=== PATIENT | female | born 1985 | race Hispanic/Latino ===

== ENCOUNTER 2017-05-27 12:31 | Inpatient (IN) | payer OTHER ==
[2017-05-27 13:34] LABS: Bilirubin Negative (Negative); Blood, Urine Negative (Negative); Glucose, Urine (Dipstick) >=1000 mg/dL (Negative); Ketone, Urine 15 mg/dL (Negative); Nitrite Negative (Negative); Protein, Urine (Dipstick) Negative (Neg-Trace); Urobilinogen 0.2 mg/dL (0.2-1.0)
[2017-05-27 13:46] LABS: #Lymphocytes 1.6 thou/uL (1.20-3.40); #Monocytes 0.4 thou/uL (0.11-0.59); #Neutrophils 7.9 thou/uL (1.40-6.50); %Basophils 0.4 % (0.0-1.0); %Eosinophils 0.5 % (0.0-10.0); %Lymphocytes 16.1 % (21.0-51.0); %Monocytes 3.6 % (0.0-10.0); Hematocrit 39.3 % (36.0-47.0); Mean Platelet Volume 10.4 fL (7.4-10.4); Red Blood Cell (RBC) Count 5.54 mill/uL (4.20-5.40)
[2017-05-27 14:00] LABS: Anisocytosis SLIGHT = 6-15 cells (100X) (0-5/hpf); Hypochromia SLIGHT = 6-15 cells (100X) (0-5/hpf); Microcytosis SLIGHT = 6-15 cells (100X) (0-5/hpf); Polychromasia SLIGHT = 2-3 cells (100X) (0-2/hpf)
[2017-05-27 14:09] LABS: ALT (SGPT) 13 U/L (8-55); AST (SGOT) 12 U/L (5-34); Alkaline Phosphatase 121 U/L (40-150); Anion Gap 18 mmol/L (10-20); BUN (Urea Nitrogen) 9 mg/dL (7.0-18.7); Bilirubin, Total 0.3 mg/dL (0.2-1.2); Calc. Creatinine Clearance 0 mL/min (70-130); Calcium 9.9 mg/dL (7.8-10.44); Carbon Dioxide 18 mmol/L (22-29); Chloride 95 mmol/L (98-107); Estimated GFR-MDRD 62; Globulin 3.4 g/dL (2.4-3.5); Lipase 47 U/L (8-78); Protein, Total 6.9 g/dL (6.0-8.3)
[2017-05-27] MEDS ORDERED: Ketorolac Tromethamine 30 MG/ML VIAL ONE (14:18)
[2017-05-27] MEDS ORDERED: Insulin Regular 300 UNITS/3 ML VIAL ONE (15:02)
--- NOTE | 2017-05-27 15:10 | ULT ---
ULTRASOUND PELVIC TRANSVAGINAL: HISTORY: Right pelvic pain. COMPARISON: None. TECHNIQUE: Rela-time, carmona scale, and color evaluation of the pelvis is performed via transabdominal and transva ginal approach. FINDINGS: There is abnormal thickening of the endometrium of 2 cm. Both ovaries are normal. Normal vascular flow to both ovaries. The uterus measures 8.5 x 4.8 x 4.9 cm and the left ovary priscila ures 2.2 x 3.9 x 2.3 cm and the right ovary measures 1.9 x 3.3 x 1.7 cm. IMPRESSION: Mildly thickened endometrium could be a normal variant in this patient and due to phase of menstruati on. Endometrial hyperplasia is within the differential as well as unopposed estrogen. Followup can be performed in 2 cycles. POS: C
[2017-05-27 16:13] LABS: Anion Gap 12 mmol/L (-14-95); T. Carbon Dioxide 27.2 mmol/L (1.0-85.0); pH (Venous) 7.367 (7.35-7.45); vO2 Saturation-calc 62.4 % (0.0-100.0)
[2017-05-27 16:36] LABS: Anion Gap 12 mmol/L (10-20); BUN (Urea Nitrogen) 7 mg/dL (7.0-18.7); Calc. Creatinine Clearance 0 mL/min (70-130); Carbon Dioxide 24 mmol/L (22-29); Chloride 105 mmol/L (98-107); Estimated GFR-MDRD Greater than 90
[2017-05-27] MEDS ORDERED: Acetaminophen 325 MG TAB PO PRN (17:39)
[2017-05-27] MEDS ORDERED: Ondansetron ODT 4 MG TAB PO PRN (17:39)
[2017-05-27] MEDS ORDERED: Dextrose 50% Abboject 50 ML SYRINGE SLOW IVP PRN (17:39)
[2017-05-27] MEDS ORDERED: Ondansetron HCl/PF 4 MG/2 ML Vial IVP PRN (17:39)
[2017-05-27] MEDS ORDERED: Dextrose 5% in Water 1,000 ML IV PRN (17:39)
[2017-05-27 18:07] VITALS: BMI 33.2
[2017-05-27] MEDS: Sodium Chloride 0.9% 1,000 ML IV SCH (18:21)
[2017-05-27] MEDS: HumaLOG 300 UNITS/3 ML VIAL SC PRN ×2 (18:21→22:57)
[2017-05-27] MEDS: Nicotine 14 MG PATCH TD SCH (18:22)
[2017-05-27] MEDS ORDERED: Potassium Chloride 40 MEQ in Sodium Chloride 0.9% 500 ML IVPB SCH (18:30)
[2017-05-27] MEDS ORDERED: NPH, Human Insulin Isophane 300 UNIT/3 ML VIAL SC SCH (20:00)
[2017-05-27 20:08] LABS: Hemoglobin A1c 15.2 % (4.0-6.0)
[2017-05-27 20:53] LABS: Anion Gap 11 mmol/L (10-20); BUN (Urea Nitrogen) 8 mg/dL (7.0-18.7); Calc. Creatinine Clearance 130 mL/min (70-130); Carbon Dioxide 25 mmol/L (22-29); Chloride 104 mmol/L (98-107); Estimated GFR-MDRD 89
[2017-05-27] MEDS ORDERED: Insulin Detemir 100 UNITS/ML 20 UNITS in Admixture Fee 1 EACH SC SCH (21:00)
[2017-05-27] MEDS ORDERED: Potassium Chloride 20 MEQ TAB PO SCH (21:45)
[2017-05-27] MEDS ORDERED: Fluconazole 100 MG TAB PO SCH (22:15)
[2017-05-27] MEDS: Famotidine 20 MG TAB PO SCH (22:47)
[2017-05-27] MEDS: Polyethylene Glycol 3350 17 GM Packet PO SCH (22:48)
--- NOTE | 2017-05-28 00:14 | HP-2 ---
CODE STATUS: Full. PRIMARY CARE PHYSICIAN: Dr. Heavenly Orourke. ATTENDING PHYSICIAN: Dr. Leonardo Quinonez. RESIDENT: Dr. Heavenly Orourke. HISTORIAN: Patient. CHIEF COMPLAINT: Abdominal pain. HISTORY OF PRESENT ILLNESS: The patient is a 32-year-old female with a past medical history of insulin-dependent type 2 diabetes, who presents with abdominal pain. The patient states that the abdominal pain is more localized to the right side and occasionally radiates to her back. She states it is a pressure-like, intermittent, 8/10 pain. She is an insulin-dependent type 2 diabetic and was started on Lantus 15 units at [facility] a few months ago , and instructed to titrate up every 3 days based on her fasting sugars. She has increased to Lantus 40 units with her sugars running about 250. She says that a few months ago she lost all of her diabetic medications and supplies and sounds like it is because she was evicted from her home and thus was not able to obtain any of her medications or supplies. In the meantime, she has been using her dad's Lantus up until 2 weeks ago. She endorses weakness, dizziness, nausea, vomiting and polyuria. Of note, when I last saw her in clinic, she had just recently got Medicaid insurance; however, she has now showed 3 appointments with me because she lost her insurance. She was on Medicaid, but states that she did not go to the class, so she lost it and will reapply next month in June. In the ER, the patient was given morphine 4 mg IV, Zofran 4 mg IV, Toradol 15 mg IV, 2-liter bolus of normal saline and regular insulin 10 units. PAST MEDICAL HISTORY: 1. Insulin-dependent type 2 diabetes. 2. Gastroesophageal reflux disease. PAST SURGICAL HISTORY: 1. Cholecystectomy. 2. x3. 3. Tonsillectomy. ALLERGIES: No known drug allergies. MEDICATIONS: 1. Metformin 500 mg p.o. b.i.d. 2. Lantus 40 units. FAMILY HISTORY: Dad, diabetes and grandmother, heart disease. SOCIAL HISTORY: 1. Tobacco: The patient states that she has been smoking cigarettes off and on since she was 16 years old and currently smokes about 5 cigarettes a day. 2. Alcohol: Occasional. 3. Drugs: None. 4. Marital status: Not . 5. No of children, 4. No ill contacts. REVIEW OF SYSTEMS: A 12-point review of systems including general, eyes, ENT, respiratory, CV, GI, , skin, musculoskeletal, neuro and psych are all negative except for pertinent positives mentioned in the HPI as well as patient states that her last menstrual period was on 05/13/2017. It lasted about 1 week and she does occasionally had some spotting. The patient does endorse vaginal itching and denies vaginal discharge to me; however, I think she did had some in the ED as they did do a pelvic exam. The patient is currently sexually active and does not use any type of contraception. Had a history of chlamydia that was treated about 10 years ago. PHYSICAL EXAMINATION: VITAL SIGNS: Blood pressure 126/85, pulse 84, respiratory rate 18, temperature 97.9, pulse ox 99% on room air and weighs 76 kilos. GENERAL: Alert and oriented x4, no apparent distress, appropriately interactive. EYES: PERRLA, EOMI. ENT: Nasal mucosa within normal. Oropharynx within normal. NECK: Supple. No lymphadenopathy. CARDIOVASCULAR: Regular rate and rhythm. No murmurs. Radial pulses 2+, pedal pulses 2+. RESPIRATORY: Normal effort. Clear to auscultation bilaterally. SKIN: No cyanosis or lesions. ABDOMEN: Soft, slight tenderness to palpation in the right lower quadrant and suprapubic tenderness. EXTREMITIES: No cyanosis or edema. MUSCULOSKELETAL: Structure within normal, tone within normal. NEUROLOGIC: No focal deficits. Sensation is normal. PSYCHIATRIC: Appropriate. LABORATORY AND IMAGING DATA: 1. Hemoglobin 12.5, hematocrit 39.3, MCV 70.8, white count 19, platelets 228 and neutrophils 79.4%. 2. Sodium 127, potassium 4.1, chloride 95, bicarbonate 18, BUN 9, creatinine 1.03 and glucose 758. 3. Calcium 9.9. Serum total protein 6.9, albumin 3.5, AST 12, ALT 13, alkaline phosphatase 121 and total bilirubin 0.3. 4. Lipase 47. 5. UA: Specific gravity 1.039, negative nitrate, negative ketones 15, glucose more than 1000. 6. [id number]/33.7. 7. Urine test negative. 8. Pelvic ultrasound, mildly thickened endometrium. ASSESSMENT AND PLAN: A 32-year-old female who presents with: 1. Hyperglycemia. It appears the patient has uncontrolled type 2 diabetes and has been out of her insulin for the past 2 weeks. The patient has a normal pH on VBG. No anion gap and slight ketones in her urine. A calculated serum osmolality is 299. This patient likely just has hyperglycemia rather than HHS. She was given 10 units of regular insulin in the Emergency Department with a repeat BMP showing an improved sugar at 257 and a sodium of 138 and a bicarbonate of 24. The patient was on Lantus outpatient; however, she no longer has insurance and will not be able to obtain the insurance until June. We will start patient on 70/30 as this will be affordable for her. We will give 10 units of NPH tonight and we will start 70/30 tomorrow with meals. We will continue to closely monitor her sugars every 2 hours and a repeat BMP every 4 hours. The patient was given 2-liter bolus of normal saline in the Emergency Department and will continue her on normal saline at 150. Discussed extensively the importance of taking her insulin. The patient admitted that sometimes she is afraid to take her insulin because she has heard that she can bottom out and feel awful. Again, reemphasized the importance of compliance and ensuring that she takes it daily in the consequences of her uncontrolled sugars. We will put in order for diabetes education as well as consult dietitian for diabetic diet. 2. Pseudohyponatremia secondary to #1. Patient has a corrected sodium with a glucose of 138. We will continue to monitor. 3. Hypokalemia. We will replenish and monitor. 4. Right lower quadrant pain with reported vaginal discharge. During my questioning, the patient denied any vaginal discharge; however, in the Emergency Department, a pelvic exam was done and was noticed to have some slight vaginal discharge and was sent for gonorrhea and chlamydia and FRUIT TESTER III. A pelvic ultrasound was done showing a mildly thickened endometrium. Of note, the patient just now recently stopped her periods last week. 5. Microcytosis. Patient has an MCV of 70.8. However, hemoglobin is low normal at 12.5. This is likely secondary to her menstrual periods. We will continue to monitor. 6. Diet, consistent carbohydrates. 7. Prophylaxis. Sequential compression devices. 8. CODE STATUS: Full. Disposition and length of hospital stay 2-3 midnights. Symptomatic medications will be provided. History and physical exam as well as management discussed with Dr. Quinonez. [place]
[2017-05-28] MEDS: HumaLOG 300 UNITS/3 ML VIAL SC PRN ×3 (00:29→21:01)
[2017-05-28 04:32] LABS: #Basophils 0.1 thou/uL (0.0-0.2); #Eosinphils 0.2 thou/uL (0.0-0.7); #Lymphocytes 3.2 thou/uL (1.20-3.40); #Monocytes 0.5 thou/uL (0.11-0.59); #Neutrophils 4.4 thou/uL (1.40-6.50); %Lymphocytes 38.7 % (21.0-51.0); %Monocytes 5.6 % (0.0-10.0); Hematocrit 34.3 % (36.0-47.0); Mean Platelet Volume 10.3 fL (7.4-10.4); Red Blood Cell (RBC) Count 4.82 mill/uL (4.20-5.40); White Blood Cell (WBC) Count 8.3 thou/uL (4.8-10.8)
[2017-05-28 04:37] LABS: Anion Gap 9 mmol/L (10-20); BUN (Urea Nitrogen) 8 mg/dL (7.0-18.7); Calc. Creatinine Clearance 148 mL/min (70-130); Calcium 8.5 mg/dL (7.8-10.44); Carbon Dioxide 25 mmol/L (22-29); Chloride 106 mmol/L (98-107); Estimated GFR-MDRD Greater than 90
[2017-05-28] MEDS: Sodium Chloride 0.9% 1,000 ML IV SCH ×5 (05:15→20:46)
--- NOTE | 2017-05-28 06:07 | HP ---
DATE OF ADMISSION: 05/27/2017 CHIEF COMPLAINT: Abdominal pain. HISTORY OF PRESENT ILLNESS: This is a 32-year-old female with past history of insulin-dependent diabetes who presents with abdominal pain, which she describes as achy and colicky and radiates to her back, more severe in nature and associated nausea, vomiting, polyuria, polyphagia, polydipsia. She has been out of her insulin for about 2 weeks, evidently because of her insurance changed and she has been unable to keep her sugars under control. In addition, she has been a little bit weak, dizzy and just like mentally foggy for the last few days as well. In the ED, she was given morphine, Zofran, Toradol, normal saline bolus and regular insulin. PAST MEDICAL HISTORY: Significant for insulin-dependent diabetes mellitus, GERD. PAST SURGICAL HISTORY: Cholecystectomy, tonsillectomy, x3. ALLERGIES: No known drug allergies. MEDICATIONS: Metformin and Lantus. FAMILY HISTORY: Diabetes, hypertension, and coronary artery disease. SOCIAL HISTORY: On and off she smokes cigarettes occasionally. Occasional alcohol and occasional drug use. REVIEW OF SYSTEMS: All other systems reviewed and were negative. PHYSICAL EXAMINATION: VITAL SIGNS: Upon admission, blood pressure 126/84, pulse 84, respirations 18, T-max 97.9, pulse ox 99% on room air. GENERAL: No acute distress, resting comfortably in bed, obese. HEENT: Eyes: Pupils equal, round, and reactive to light. Extraocular movements intact, without icterus or injection. Ears, nose and throat: Moist mucous membranes. No posterior erythema. Normal pinna, patent. NECK: Supple. Trachea midline. No bruit. CARDIOVASCULAR: Regular rate and rhythm without murmur, gallops or rubs. Distal pulses 2+. No peripheral edema. RESPIRATORY: Normal effort, clear to auscultation bilaterally. ABDOMEN: Bowel sounds positive. Mild tender to palpation. No guarding, rigidity. She says she is tight whenever I do a check for CVA tenderness. MUSCULOSKELETAL: Without deformity or contracture or joint swelling. SKIN: Warm and dry without signs of any wounds or rashes. GENITOURINARY: Deferred. NEUROLOGIC: Cranial nerves II-XII are intact, symmetric. Motor 5/5 in upper and lower extremities. Sensation to light touch in all 4 extremities. PSYCHIATRIC: Alert and oriented x3. Mood and affect appropriate for current medical condition. LABORATORY DATA: White blood cell count 10, hemoglobin 12.5, platelets 228. Blood gas, pH is 7.36. BMP: Sodium 136, potassium 3.5, chloride 104, bicarbonate 25, gap of 11, most recent creatinine 0.75, glucose 348. Urine with greater than 1000 glucose, positive ketones. There is no BUN available to adjust her gap. Pelvic sonogram with mildly thickened endometrium with endometrial hyperplasia versus normal cycle as being in the differential. ASSESSMENT AND PLAN: This 32-year-old female with: 1. Hyperglycemia. She is having some neurologic symptoms. These seem to be improving with resuscitation. I think we can hold off on an insulin drip as she responded, change control manager, go ahead and give her long-acting as she is tolerating p.o., replete her potassium and add sliding scale insulin as well. 2. Constipation. We will go ahead and order MiraLax. 3. Yeast infection. She has had recurrent yeast infection. Await results of swab. Will go ahead and give Diflucan x1. 4. Deep venous thrombosis prophylaxis with Lovenox. 5. Gastrointestinal prophylaxis with strict diet. She currently has [employer] next to her bedside. We will need to make sure she has 1800-calorie carb-restricted diet. [facility]
[2017-05-28 07:21] LABS: Iron 24 ug/dL (50-170)
[2017-05-28] MEDS ORDERED: Insulin NPH/Reg Insulin Hm 300 UNITS/3 ML VIAL SC SCH ×7 (07:30→20:00)
--- NOTE | 2017-05-28 08:11 | PDOC.FM ---
- Subjective Subjective: Pt is doing better this morning. Says her abdominal pain has resolved. States she is still having a lot of vaginal irritation. Denies any nausea, vomitting. Denies any fever or chills. Denies any constipation/diarrhea. No other concerns or complaints at this time. - Objective MAR Reviewed: Yes Vital Signs & Weight: Vital Signs (12 hours) Temp Pulse Resp BP Pulse Ox 05/28/17 07:25 98 F 77 18 120/79 91 L Weight Weight 77.111 kg I&O: 05/27/17 05/28/17 05/29/17 06:59 06:59 06:59 Intake Total 240 Balance 240 Result Diagrams: 05/28/17 03:30 05/28/17 03:30 Radiology Reviewed by me: Yes (No new images to be reviewed this am) <Ruben Aguila - Last Filed: 05/28/17 08:24> - Objective Vital Signs & Weight: Vital Signs (12 hours) Temp Pulse Resp BP Pulse Ox 05/28/17 08:00 98 F 77 18 91 L 05/28/17 07:25 98 F 77 18 120/79 91 L Weight Weight 77.111 kg I&O: 05/27/17 05/28/17 05/29/17 06:59 06:59 06:59 Intake Total 240 240 Balance 240 240 Result Diagrams: 05/28/17 03:30 05/28/17 03:30 <Kishore Michael - Last Filed: 05/28/17 11:07> Phys Exam - Physical Examination HEENT: PERRLA, moist MMs, oral pharynx no lesions Neck: no nodes, supple Respiratory: no wheezing, no rales, no rhonchi, clear to auscultation bilateral Cardiovascular: RRR, no significant murmur, no rub Gastrointestinal: soft, non-tender, no distention, positive bowel sounds Musculoskeletal: no edema, pulses present Neurological: non-focal, normal sensation Psychiatric: normal affect, A&O x 3 Skin: no rash, normal turgor <Ruben Aguila - Last Filed: 05/28/17 08:24> Dx/Plan (1) Hyperglycemia Code(s): R73.9 - HYPERGLYCEMIA, UNSPECIFIED Status: Acute Plan: Blood sugars elevated. -Switched to NPH as patient had not been taking medicine due to finances. -Will increase here NPH dose and also give a basal does at night -Will continue to monitor and adjust as needed (2) Type 2 diabetes mellitus Status: Acute Plan: Jenifer CALLE/HS -Mod SSI -Case management consulted to help with payment options and to make sure she can get insulin (3) GERD (gastroesophageal reflux disease) Code(s): K21.9 - GASTRO-ESOPHAGEAL REFLUX DISEASE WITHOUT ESOPHAGITIS Status: Acute Plan: -Famotidine (4) Iron deficiency anemia Code(s): D50.9 - IRON DEFICIENCY ANEMIA, UNSPECIFIED Status: Acute Plan: MCV, Iron, and Ferritin Low. Hgb 10.8. -Will start on ferrous sulfate and continue to trend. -will need follow up out patients (5) Bacterial vaginosis Code(s): N76.0 - ACUTE VAGINITIS; B96.89 - OTH BACTERIAL AGENTS THE CAUSE OF DISEASES CLASSD ELSWHR Status: Acute Plan: VP3 gardnrella postitive -Metronidazole for tx (6) Jennifer vaginitis Code(s): B37.3 - CANDIDIASIS OF VULVA AND VAGINA Status: Acute Plan: VP3 positive for jennifer infection -Diflucan given yesterday. Will need in two more days and 3 more days after that. <Ruben Aguila - Last Filed: 05/28/17 08:24> Attending Addendum - Attending Addendum I personally evaluated the patient and discussed the management with Dr. Aguila. I agree with the History, Examination, Assessment and Plan documented above with any addition or exceptions noted below. Patient admitted yesterday with severe hyperglycemia, though was not hyperosmolar and not in DKA. That has since improved substantially with resuming insulin regimen. We will modify her regimen today and monitor blood sugars. She was also found to have vaginitis that is now being treated. Her other labs have normalized with decreasing blood sugars. Starting iron therapy for her iron deficiency anemia. Hopeful discharge tomorrow. <Kishore Michael - Last Filed: 05/28/17 11:07>
[2017-05-28] MEDS: metFORMIN 500 MG TAB PO SCH ×2 (08:54→17:52)
[2017-05-28] MEDS: metroNIDAZOLE 500 MG TAB PO SCH ×2 (08:54→20:42)
[2017-05-28] MEDS: Famotidine 20 MG TAB PO SCH ×2 (08:54→20:42)
[2017-05-28] MEDS ORDERED: Insulin Detemir 100 UNITS/ML 20 UNITS in Pre-Filled Syringe SC SCH (09:00)
[2017-05-28] MEDS ORDERED: FLU VACC QS2017-18 36 mo. & older 0.5 ML SYRINGE IM ONE (09:00)
[2017-05-28] MEDS: Nicotine 14 MG PATCH TD SCH (17:52)
[2017-05-28] MEDS: traMADol HCl 50 MG TAB PO PRN (18:57)
[2017-05-28] MEDS: Ibuprofen 600 MG TAB PO PRN (20:46)
[2017-05-28] MEDS ORDERED: Milk Of Magnesia 30 ML UDCUP PO PRN (21:04)
[2017-05-28] MEDS: Polyethylene Glycol 3350 17 GM Packet PO SCH (22:26)
[2017-05-29] MEDS: HumaLOG 300 UNITS/3 ML VIAL SC PRN ×2 (00:21→12:27)
[2017-05-29] MEDS: Sodium Chloride 0.9% 1,000 ML IV SCH ×2 (01:10→06:48)
[2017-05-29 05:07] LABS: #Eosinphils 0.1 thou/uL (0.0-0.7); #Lymphocytes 2.5 thou/uL (1.20-3.40); #Monocytes 0.4 thou/uL (0.11-0.59); #Neutrophils 4.4 thou/uL (1.40-6.50); %Basophils 0.3 % (0.0-1.0); %Eosinophils 1.6 % (0.0-10.0); %Lymphocytes 33.5 % (21.0-51.0); %Monocytes 5.5 % (0.0-10.0); Hematocrit 31.7 % (36.0-47.0); Mean Platelet Volume 10.1 fL (7.4-10.4); Red Blood Cell (RBC) Count 4.45 mill/uL (4.20-5.40); White Blood Cell (WBC) Count 7.4 thou/uL (4.8-10.8)
[2017-05-29 05:21] LABS: Anion Gap 9 mmol/L (10-20); BUN (Urea Nitrogen) 14 mg/dL (7.0-18.7); Calc. Creatinine Clearance 155 mL/min (70-130); Calcium 8.7 mg/dL (7.8-10.44); Carbon Dioxide 26 mmol/L (22-29); Chloride 106 mmol/L (98-107); Estimated GFR-MDRD Greater than 90
[2017-05-29] MEDS: traMADol HCl 50 MG TAB PO PRN ×2 (06:46→12:32)
[2017-05-29 07:50] VITALS: BP 135/83; TEMP 98.4
[2017-05-29] MEDS ORDERED: Insulin NPH/Reg Insulin Hm 300 UNITS/3 ML VIAL SC SCH ×2 (08:00)
[2017-05-29] MEDS ORDERED: Ferrous Sulfate 325 MG TAB PO SCH (08:00)
[2017-05-29] MEDS: metFORMIN 500 MG TAB PO SCH (08:08)
[2017-05-29] MEDS: Famotidine 20 MG TAB PO SCH (08:08)
[2017-05-29] MEDS: metroNIDAZOLE 500 MG TAB PO SCH (08:08)
--- NOTE | 2017-05-29 08:14 | PDOC.FM ---
- Subjective Subjective: Pt is doing well this morning. Still complaining of vaginal itching at this time. States tramadol helped with pain. Denies any acute events overnight. Says she slept well overnight. No other concerns or complaints - Objective MAR Reviewed: Yes Vital Signs & Weight: Vital Signs (12 hours) Temp Pulse Resp BP Pulse Ox 05/29/17 07:49 98.4 F 76 18 135/83 97 Weight Weight 77.111 kg I&O: 05/28/17 05/29/17 05/30/17 06:59 06:59 06:59 Intake Total 240 2860 Balance 240 2860 Result Diagrams: 05/29/17 04:46 05/29/17 04:46 <Ruben Aguila - Last Filed: 05/29/17 08:11> - Objective Vital Signs & Weight: Vital Signs (12 hours) Temp Pulse Resp BP Pulse Ox 05/29/17 08:00 98.4 F 76 18 135/83 97 05/29/17 07:49 98.4 F 76 18 135/83 97 Weight Weight 77.111 kg I&O: 05/28/17 05/29/17 05/30/17 06:59 06:59 06:59 Intake Total 240 2860 240 Balance 240 2860 240 Result Diagrams: 05/29/17 04:46 05/29/17 04:46 <Kishore Michael - Last Filed: 05/29/17 11:41> Phys Exam - Physical Examination HEENT: moist MMs, oral pharynx no lesions Neck: no nodes, no JVD, supple Respiratory: no wheezing, no rales, no rhonchi, clear to auscultation bilateral Cardiovascular: RRR, no significant murmur, no rub Gastrointestinal: soft, non-tender, no distention, positive bowel sounds Musculoskeletal: no edema, pulses present Neurological: non-focal, normal sensation Lymphatic: no nodes Psychiatric: normal affect, A&O x 3 Skin: no rash (On extremities. ) <Ruben Aguila - Last Filed: 05/29/17 08:11> Dx/Plan (1) Hyperglycemia Code(s): R73.9 - HYPERGLYCEMIA, UNSPECIFIED Status: Acute Plan: Blood sugars elevated. -Switched to NPH as patient had not been taking medicine due to finances. -Will increase here NPH dose and also give a basal does at night. Increased NPH from 30 to 40 this morning. Got 60 units of 70/30, and 13 units of humalog vis SSI and sugars were still elevated in the upper 200's -Will continue to monitor and adjust as needed (2) Type 2 diabetes mellitus Status: Acute Plan: Accuchecks AC/HS -Mod SSI -Case management consulted to help with payment options and to make sure she can get insulin (3) GERD (gastroesophageal reflux disease) Code(s): K21.9 - GASTRO-ESOPHAGEAL REFLUX DISEASE WITHOUT ESOPHAGITIS Status: Acute Plan: -Famotidine (4) Iron deficiency anemia Code(s): D50.9 - IRON DEFICIENCY ANEMIA, UNSPECIFIED Status: Acute Plan: MCV, Iron, and Ferritin Low. Hgb decreased 9.9. -Will start on ferrous sulfate and continue to trend. -will need follow up out patients (5) Bacterial vaginosis Code(s): N76.0 - ACUTE VAGINITIS; B96.89 - OTH BACTERIAL AGENTS THE CAUSE OF DISEASES CLASSD ELSWHR Status: Acute Plan: VP3 gardnrella postitive -Metronidazole for tx -Was having pain yesterday. Tylenol did not help much. Px tramadol to help. Pain more itching and irritation. (6) Ashlyn vaginitis Code(s): B37.3 - CANDIDIASIS OF VULVA AND VAGINA Status: Acute Plan: VP3 positive for ashlyn infection -Diflucan given yesterday. Will need in two more days and 3 more days after that. -Still having itching. Px clotrimazole topical cream to help with infection and to help with itching relief. <Ruben Aguila - Last Filed: 05/29/17 08:11> Attending Addendum - Attending Addendum I personally evaluated the patient and discussed the management with Dr. Aguila. I agree with the History, Examination, Assessment and Plan documented above with any addition or exceptions noted below. Patient blood sugars substantially improved on current regimen, though will need to be titrated in outpatient setting to gain optimal control. If sugars mostly ok through the day, she should be stable for discharge. Will complete therapy course of Diflucan and Flagyl for vaginitis. Needs close follow up in outpatient setting. <Kishore Michael - Last Filed: 05/29/17 11:41>
[2017-05-29] MEDS: Ibuprofen 600 MG TAB PO PRN (13:27)
[2017-05-29] MEDS ORDERED: Clotrimazole 2% 3 Day Vag Cr 22.2 GM TUBE VAG SCH (21:00)
== END 2017-05-29 17:03 | disposition home or self-care (01) | DRG 639 ==
LOC: ERS 12:31 → 2SW 15:50 → OBSVTOIN 15:50 → T4-A 19:16
PROVIDERS: ADMIT Student in an Organized Health Care Education/Training Program; ATTEND Student in an Organized Health Care Education/Training Program
DX: E11.65 Type 2 diabetes mellitus with hyperglycemia (principal); B37.3 Candidiasis of vulva and vagina; B96.89 Other specified bacterial agents as the cause of diseases classified elsewhere; F17.210 Nicotine dependence, cigarettes, uncomplicated; E87.6 Hypokalemia; D50.9 Iron deficiency anemia, unspecified; K21.9 Gastro-esophageal reflux disease without esophagitis; K59.00 Constipation, unspecified; Z79.4 Long term (current) use of insulin; N76.0 Acute vaginitis; Z91.14 Patient's other noncompliance with medication regimen
CPT/HCPCS: 36415; 36416; 76856; 80048; 80053; 81003; 81025; 82330; 82728; 82803; 83036; 83540; 83550; 83690; 85025; 87480; 87491; 87510; 87591; 87660; 90471; 90682; 96361; 96374; 96375; A4216; G0008; J1815; J1885; J3480; J7050; Q0162; Q2036

== ENCOUNTER 2017-05-31 20:27 | Emergency (ER) | payer OTHER ==
[2017-05-31] MEDS ORDERED: HYDROcodone/Acetaminophen 5/325 mg Tablet ONE (21:04)
[2017-05-31 21:10] LABS: Bilirubin Negative (Negative); Blood, Urine Trace (Negative); Glucose, Urine (Dipstick) >=1000 mg/dL (Negative); Ketone, Urine Negative (Negative); Nitrite Negative (Negative); Protein, Urine (Dipstick) Negative (Neg-Trace); Urobilinogen 0.2 mg/dL (0.2-1.0)
[2017-05-31 21:11] LABS: Bacteria/HPF 4+ HPF (None Seen); Hyaline Casts/LPF 0-3 HYALINE CAST LPF (0-3 Hyaline); Squamous Epithelial 21-50 HPF (0-3)
[2017-05-31] MEDS ORDERED: Fluconazole 100 MG TAB PO SCH (21:30)
[2017-05-31] MEDS ORDERED: hydrOXYzine 25 MG TAB ONE ×2 (21:59→22:01)
[2017-05-31] MEDS ORDERED: Acyclovir 800 mg Tablet PO SCH (23:15)
== END 2017-05-31 23:45 | disposition home or self-care (01) ==
LOC: ERS 20:27
DX: A60.04 Herpesviral vulvovaginitis (principal); E11.9 Type 2 diabetes mellitus without complications; F32.9 Major depressive disorder, single episode, unspecified; F17.210 Nicotine dependence, cigarettes, uncomplicated
CPT/HCPCS: 36416; 81003; 81015; 81025; 99283

== ENCOUNTER 2017-08-04 18:49 | Emergency (ER) | payer OTHER ==
[2017-08-04] MEDS ORDERED: Bacitracin Zinc 1 Packet ONE (20:44)
== END 2017-08-04 20:45 | disposition home or self-care (01) ==
LOC: ERS 18:49
DX: S91.201A Unspecified open wound of right great toe with damage to nail, initial encounter (principal); E11.9 Type 2 diabetes mellitus without complications; F32.9 Major depressive disorder, single episode, unspecified; F17.210 Nicotine dependence, cigarettes, uncomplicated; X58.XXXA Exposure to other specified factors, initial encounter
CPT/HCPCS: 11750

== ENCOUNTER 2017-09-19 02:48 | Emergency (ER) | payer OTHER ==
[2017-09-19 03:35] LABS: #Basophils 0.1 thou/uL (0.0-0.2); #Eosinphils 0.1 thou/uL (0.0-0.7); #Lymphocytes 2.4 thou/uL (1.20-3.40); #Monocytes 0.4 thou/uL (0.11-0.59); #Neutrophils 4.7 thou/uL (1.40-6.50); %Basophils 0.7 % (0.0-1.0); %Eosinophils 0.9 % (0.0-10.0); %Lymphocytes 31.3 % (21.0-51.0); %Monocytes 4.9 % (0.0-10.0); %Neutrophils 62.1 % (42.0-75.0); Hemoglobin 14.7 g/dL (12.0-16.0); Mean Corpuscular HGB CONC 33.6 g/dL (32.0-36.0); Mean Corpuscular Hemoglobin 26.8 pg (27.0-31.0); Mean Corpuscular Volume 79.8 fl (81.0-99.0); Mean Platelet Volume 9.6 fL (7.4-10.4); Platelet Count 194 thou/uL (130-400); RBC Distribution Width 13.7 % (11.5-14.5); Red Blood Cell (RBC) Count 5.47 mill/uL (4.20-5.40); White Blood Cell (WBC) Count 7.6 thou/uL (4.8-10.8)
[2017-09-19 03:48] LABS: Base Excess-Venous -1.8 mmol/L (-30.0-30.0); Bicarbonate (HCO3v) 24.7 mmol/L (1.0-85.0); CO2 Tension (PvCO2) 47.1 mmHg (41.0-51.0); Calcium, Ionized 1.11 mmol/L (1.12-1.32); Hemoglobin - Calc 15.2 g/dL (12.0-18.0); O2 Tension (PvO2) 26.3 mmHg (35.0-45.0); T. Carbon Dioxide 26.1 mmol/L (1.0-85.0); pH (Venous) 7.327 (7.35-7.45); vO2 Saturation-calc 43.4 % (0.0-100.0)
[2017-09-19 03:57] LABS: ALT (SGPT) 10 U/L (8-55); AST (SGOT) 7 U/L (5-34); Albumin 3.9 g/dL (3.5-5.0); Alkaline Phosphatase 130 U/L (40-150); Anion Gap 15 mmol/L (10-20); BUN (Urea Nitrogen) 16 mg/dL (7.0-18.7); Bilirubin, Total 0.3 mg/dL (0.2-1.2); Calc. Creatinine Clearance 0 mL/min (70-130); Calcium 9.6 mg/dL (7.8-10.44); Carbon Dioxide 23 mmol/L (22-29); Chloride 97 mmol/L (98-107); Estimated GFR-MDRD 57; Globulin 3.1 g/dL (2.4-3.5); Phosphorus 4.4 mg/dL (2.3-4.7); Potassium 4.3 mmol/L (3.5-5.1); Sodium 131 mmol/L (136-145)
[2017-09-19 04:07] LABS: Glucose 691 mg/dL (70-105)
[2017-09-19 04:11] LABS: Bilirubin Negative (Negative); Blood, Urine Negative (Negative); Clarity CLEAR (Clear); Glucose, Urine (Dipstick) >=1000 mg/dL (Negative); Leukocyte Negative (Negative); Nitrite Negative (Negative); Protein, Urine (Dipstick) Negative (Neg-Trace); Specific Gravity, Urine 1.036 (1.002-1.036); pH, Urine 6.5 (5.0-9.0)
[2017-09-19] MEDS ORDERED: Insulin Regular 300 UNITS/3 ML VIAL ONE (04:42)
[2017-09-19] MEDS ORDERED: Ketorolac Tromethamine 30 MG/ML VIAL ONE (04:42)
== END 2017-09-19 06:07 | disposition home or self-care (01) ==
LOC: ERS 02:48
DX: H10.9 Unspecified conjunctivitis (principal); E11.9 Type 2 diabetes mellitus without complications; F41.9 Anxiety disorder, unspecified; F17.210 Nicotine dependence, cigarettes, uncomplicated; Z79.4 Long term (current) use of insulin
CPT/HCPCS: 36416; 80053; 81003; 82010; 82330; 82803; 83735; 84100; 85025; 96361; 96372; 96374; 99406; J1815; J1885

== ENCOUNTER 2017-10-17 22:43 | Inpatient (IN) | payer OTHER ==
[2017-10-17 23:10] LABS: Bilirubin Negative (Negative); Blood, Urine Trace (Negative); Clarity CLEAR (Clear); Glucose, Urine (Dipstick) >=1000 mg/dL (Negative); Leukocyte Small (Negative); Nitrite Negative (Negative); Protein, Urine (Dipstick) Negative (Neg-Trace); Specific Gravity, Urine 1.037 (1.002-1.036); Urobilinogen 0.2 mg/dL (0.2-1.0)
[2017-10-17 23:12] LABS: Bacteria/HPF 1+ HPF (None Seen); Hyaline Casts/LPF 0-3 HYALINE CAST LPF (0-3 Hyaline); Pathc Cast-AUWi Flag 0.29 (0-2.49); RBC/HPF 0-3 HPF (0-3)
[2017-10-17 23:13] LABS: Pregnancy Test - Urine (BHCG) Negative (Negative); Pregu Control Background? CLEAR/WHITE (CLR/WHITE); Pregu Control Bar Appear? YES (CONTROL BAR); Specific Gravity 1.037 (1.002-1.036)
[2017-10-17 23:23] LABS: #Eosinphils 0.1 thou/uL (0.0-0.7); #Lymphocytes 2.6 thou/uL (1.20-3.40); #Monocytes 0.4 thou/uL (0.11-0.59); #Neutrophils 5.2 thou/uL (1.40-6.50); %Basophils 0.6 % (0.0-1.0); %Eosinophils 1.1 % (0.0-10.0); %Lymphocytes 31.1 % (21.0-51.0); %Monocytes 4.4 % (0.0-10.0); %Neutrophils 62.8 % (42.0-75.0); Hemoglobin 14.8 g/dL (12.0-16.0); Mean Corpuscular HGB CONC 34.9 g/dL (32.0-36.0); Mean Corpuscular Hemoglobin 27.7 pg (27.0-31.0); Mean Corpuscular Volume 79.5 fl (81.0-99.0); Mean Platelet Volume 9.8 fL (7.4-10.4); Platelet Count 208 thou/uL (130-400); Red Blood Cell (RBC) Count 5.35 mill/uL (4.20-5.40); White Blood Cell (WBC) Count 8.3 thou/uL (4.8-10.8)
[2017-10-17 23:49] LABS: ALT (SGPT) 11 U/L (8-55); AST (SGOT) 12 U/L (5-34); Albumin 3.8 g/dL (3.5-5.0); Alkaline Phosphatase 141 U/L (40-150); Anion Gap 17 mmol/L (10-20); BUN (Urea Nitrogen) 19 mg/dL (7.0-18.7); Bilirubin, Total 0.2 mg/dL (0.2-1.2); Calc. Creatinine Clearance 0 mL/min (70-130); Calcium 9.6 mg/dL (7.8-10.44); Carbon Dioxide 18 mmol/L (22-29); Chloride 99 mmol/L (98-107); Estimated GFR-MDRD 44; Globulin 3.7 g/dL (2.4-3.5); Magnesium 2.1 mg/dL (1.6-2.6); Phosphorus 3.2 mg/dL (2.3-4.7); Potassium 4.4 mmol/L (3.5-5.1); Protein, Total 7.5 g/dL (6.0-8.3); Sodium 130 mmol/L (136-145)
[2017-10-17 23:59] LABS: Glucose 714 mg/dL (70-105)
[2017-10-18] MEDS ORDERED: hydrOXYzine 25 MG TAB ONE (00:08)
[2017-10-18] MEDS ORDERED: Insulin Regular 300 UNITS/3 ML VIAL ONE (00:08)
[2017-10-18] MEDS ORDERED: HYDROcodone/Acetaminophen 5/325 mg Tablet ONE (00:08)
[2017-10-18] MEDS ORDERED: traMADol HCl 50 MG TAB ONE (00:19)
[2017-10-18] MEDS ORDERED: Fluconazole 100 MG TAB PO SCH ×2 (00:30→20:00)
[2017-10-18 00:49] LABS: Hemoglobin A1c 14.2 % (4.0-6.0)
[2017-10-18 01:17] LABS: Lactic Acid 2.4 mmol/L (0.5-2.2)
[2017-10-18 01:21] LABS: Anion Gap 13 mmol/L (10-20); BUN (Urea Nitrogen) 17 mg/dL (7.0-18.7); Calc. Creatinine Clearance 0 mL/min (70-130); Calcium 9.1 mg/dL (7.8-10.44); Carbon Dioxide 22 mmol/L (22-29); Chloride 102 mmol/L (98-107); Estimated GFR-MDRD 63; Glucose 466 mg/dL (70-105); Potassium 3.7 mmol/L (3.5-5.1); Sodium 133 mmol/L (136-145)
--- NOTE | 2017-10-18 01:46 | PDOC.FPRHP ---
- History of Present Illness Chief Complaint: Vaginal Pain History of Present Illness: 32 yo F w/hx of uncontrolled DM2 presents with complaint of vaginal pain and itching for at least one month's duration. She states that she has had a constant yeast infection for a few months however the pain has become progressively worse over the past few weeks. Additionally she complains of 2 days of nausea, lightheadedness, and headaches. She denies fever, back pain, or vomiting. She states that she typically takes 40 units of 70/30 daily in addition to 500mg of metformin BID. She does not check her glucose at home and has not been seen for DM in clinic since last January. She says that she knows that she does not keep to her diabetic diet and drinks many sugary drinks daily. In the ED she had an initial BG of 714 and was given 10 units of regular insulin and a 2L bolus of NS and her BG improved to 399. - Allergies/Adverse Reactions Allergies Allergy/AdvReac Type Severity Reaction Status Date / Time diphenhydramine Allergy Verified 10/18/17 03:01 [From Benadryl] - Home Medications Medication Instructions Recorded Confirmed Type Acetaminophen [Tylenol Regular 650 mg PO Q4H PRN tab 05/29/17 10/18/17 Rx Strength] Ferrous Sulfate [Feosol] 325 mg PO QAM-WM #30 tab 05/29/17 10/18/17 Rx Ibuprofen [Motrin] 600 mg PO Q6H PRN tab 05/29/17 10/18/17 Rx Insulin NPH/Reg Insulin Hm 40 units SC QAM-WM #3 vial 05/29/17 10/18/17 Rx [HumuLIN 70/30 Vial] metFORMIN [Glucophage] 500 mg PO BID-WM #30 tab 05/29/17 10/18/17 Rx - History PMHx: DM2 MDD w/SI and self harm (cutting) PSHx: C section x3 Cholecystectomy Tubal ligation FHx: Paternal DM Social: Off and on smoker for 16 years. Social etoh Denies recreational drugs - Review of Systems General: denies: fever/chills, weight/appetite/sleep changes Eyes: reports: vision changes (vision has worsened over the past year) ENT: denies: nasal congestion, rhinorrhea Respiratory: denies: cough, congestion, shortness of breath Cardiovascular: denies: chest pain, palpitation Gastrointestinal: reports: nausea, abdominal pain (Suprapubic). denies: vomiting, diarrhea, constipation Genitourinary: reports: dysuria, polyuria, discharge (Complains of constant yeast infection) Skin: denies: rashes, lesions Musculoskeletal: denies: pain, tenderness Neurological: reports: numbness (Complains of numbness on L foot) Psychological: reports: depression (w/o SI) - Vital signs BP: 138/90 HR: 91 RR: 18 Tmax: 98.4 Pox: 98% on RA Wt: 74 kg - Physical Exam Constitutional: NAD, awake, alert and oriented, well developed HEENT: normocephalic and atraumatic, PERRLA, EOMI Neck: supple, FROM, trachea midline Chest: no-tender to palpation, no lesions Heart: RRR, normal S1/S2 Lungs: CTAB, no respiratory distress Abdomen: soft, bowel sounds present, no masses/distention -Abdomen: Slight epigastric tenderness Musculoskeletal: normal structure, normal tone, ROM grossly normal Neurological: no focal deficit, CN II-XII intact Skin: no rash/lesions, good turgor Heme/Lymphatic: no unusual bruising or bleeding Psychiatric: normal mood and affect, good judgment and insight, intact recent and remote memory FMR H&P: Results - Labs Result Diagrams: 10/17/17 23:18 10/18/17 02:56 Lab results: WBC 8.3 thou/uL (4.8-10.8) 10/17/17 23:18 Hgb 14.8 g/dL (12.0-16.0) 10/17/17 23:18 Hct 42.6 % (36.0-47.0) 10/17/17 23:18 MCV 79.5 fl (81.0-99.0) L 10/17/17 23:18 Plt Count 208 thou/uL (130-400) 10/17/17 23:18 Neutrophils % 62.8 % (42.0-75.0) 10/17/17 23:18 Sodium 133 mmol/L (136-145) L 10/18/17 00:38 Potassium 3.7 mmol/L (3.5-5.1) 10/18/17 00:38 Chloride 102 mmol/L (98-107) 10/18/17 00:38 Carbon Dioxide 22 mmol/L (22-29) 10/18/17 00:38 BUN 17 mg/dL (7.0-18.7) 10/18/17 00:38 Creatinine 1.01 mg/dL (0.6-1.1) 10/18/17 00:38 Glucose 466 mg/dL (70-105) H 10/18/17 00:38 Lactic Acid 2.4 mmol/L (0.5-2.2) H 10/17/17 23:12 Calcium 9.1 mg/dL (7.8-10.44) 10/18/17 00:38 Total Bilirubin 0.2 mg/dL (0.2-1.2) 10/17/17 23:18 AST 12 U/L (5-34) 10/17/17 23:18 ALT 11 U/L (8-55) 10/17/17 23:18 Alkaline Phosphatase 141 U/L (40-150) 10/17/17 23:18 Serum Total Protein 7.5 g/dL (6.0-8.3) 10/17/17 23:18 Albumin 3.8 g/dL (3.5-5.0) 10/17/17 23:18 Urine Ketones Trace mg/dL (Negative) H 10/17/17 22:59 Urine Blood Trace (Negative) H 10/17/17 22:59 Urine Nitrite Negative (Negative) 10/17/17 22:59 Ur Leukocyte Esterase Small (Negative) H 10/17/17 22:59 Urine RBC 0-3 HPF (0-3) 10/17/17 22:59 Urine WBC Greater Than 50-TNTC HPF (0-3) H 10/17/17 22:59 Ur Squamous Epith Cells 4-6 HPF (0-3) H 10/17/17 22:59 Urine Bacteria 1+ HPF (None Seen) H 10/17/17 22:59 FMR H&P: A/P - Problem List (1) DM w/ hyperosmolarity Current Visit: Yes Status: Acute Priority: High Code(s): E11.00 - TYPE 2 DIAB W HYPROSM W/O NONKET HYPRGLY-HYPROS COMA (N[facility]) (2) UTI (urinary tract infection) Current Visit: Yes Status: Acute Priority: Medium Qualifiers: Urinary tract infection type: acute cystitis Hematuria presence: without hematuria Qualified Code(s): N30.00 - Acute cystitis without hematuria (3) MDD (major depressive disorder) Current Visit: Yes Status: Acute Priority: Medium Code(s): F32.9 - MAJOR DEPRESSIVE DISORDER, SINGLE EPISODE, UNSPECIFIED Qualifiers: Active/Remission status: currently active Major depression episode severity : unspecified (4) AMERICA (acute kidney injury) Current Visit: Yes Status: Acute Priority: Medium Code(s): N17.9 - ACUTE KIDNEY FAILURE, UNSPECIFIED (5) HTN (hypertension) Current Visit: Yes Status: Chronic Priority: Medium Code(s): I10 - ESSENTIAL (PRIMARY) HYPERTENSION (6) Ashlyn vaginitis Current Visit: Yes Status: Acute Priority: Medium Code(s): B37.3 - CANDIDIASIS OF VULVA AND VAGINA (7) Type 2 diabetes mellitus Current Visit: No Status: Chronic Priority: Medium Qualifiers: Diabetes mellitus terminal gauger insulin use: with terminal gauger use Diabetes mellitus complication status: with hyperglycemia Qualified Code(s): E11.65 - Type 2 diabetes mellitus with hyperglycemia; Z79.4 - senior living (current) use of insulin; Z79.4 - terminal gauger (current) use of insulin; Z79.4 - terminal gauger (current ) use of insulin; Z79.4 - senior living (current) use of insulin - Plan HHS - Most likely dx, serium osm pending - Pt has significant response to only 10 units of reg insulin in ED, this makes her compliance in the outpatient setting questionable. - will monitor BMP q2 to prove K is stable and monitor BG. Move to q2 accucheck when K is stable for 2 BMP. Replace if needed - Na of 130 corrects to normal range - Bolus 2 L NS, then start at maintenance rate of 115 ml/hr UTI - continue Rocephin - discussed with pt that these infections are being made worse and more frequent dt her uncontrolled DM - Cx pending Vaginal candidiasis - continue fluconazole for extended treatment course - VP3 pending, treat other infections as indicated MDD - Pt admits to all SIGECAPS other than SI - Pt will need more formal eval in am, then consider starting SSRI - recommend outpt follow up AMERICA - already resolving with IVF - Monitor BMP as above HTN - Monitor vitals - start on antihypertensive medication if indicated once HHS resolves Ppx - SCD and frequent ambulation Diet low carb Code full Dispo: Pt is stable enough for medical floor and is improving quickly. Likely length of stay 48 hours FMR H&P: Upper Level - Plan Date/Time: 10/18/17 0133 Nettie Yu, PGY3, have evaluated this patient and agree with findings/plan as outlined by art gallery internship resident. Pertinent changes/additions are listed here. This is a 32 yo w/ PMH IDDM presents w/ BG > 700. For the past few days has ahd polydipsia, polyuria, as well as increased burning with urination and vaginal discharge. No other symptoms. States that she doesn't have a glucometer. Patient also complains of depression due to her DM. No currently suicidial or homicidal. Has been on Zoloft in the past. PE: AOX4 In no acute distress. HEENT: Dry mucous membranes. TM pearly carmona. No cervical adenopathy CV: RRR. No murmurs Resp: CTA bilaterally Abd: Soft non-tender to palpation Ext: no edema, no erythema. A/P: 1) HHS - S/p 2L NS and 10U Insulin. Will add another 2L NS. Will check BMP's Q2hrs. Add potassium as needed to fluids. Will start long acting insulin once BG improved. 2) IDDM - Will start Levemir 15U as was previously on this, and will f/u accuchecks. Hold Metformin until discharge. Diabetes education. Consult case management to assist with resources. Pt will need glucometer upon discharge. 3) Lactic acidosis - Fluids and repeat lactic acid in 4 hrs. Likely 2/2 dehydration & #1. 4) UTI/vaginitis - Previous had ashlyn vaginitis, as well as BV, gardnerella and strep. will continue Fluconazole and Rocephin and f/u with urine Cx and VP3 and G/C. 5) AMERICA - improved with fluids. F/u with BMP. 6) Depression - Consider starting Cymbalta or Zoloft outpatient to ensure good f /u. Recommend counselling. Not currently Suicidal or homicidal.
[2017-10-18] MEDS ORDERED: Dextrose 50% Abboject 50 ML SYRINGE SLOW IVP PRN (02:01)
[2017-10-18] MEDS ORDERED: Sodium Chloride 0.9% 1,000 ML IV SCH (02:01)
[2017-10-18] MEDS ORDERED: Dextrose 5% in Water 1,000 ML IV PRN (02:01)
[2017-10-18] MEDS: Sodium Chloride 0.9% 1,000 ML IV SCH ×2 (03:18→04:17)
[2017-10-18 03:24] VITALS: BMI 31.8
[2017-10-18 03:28] LABS: Anion Gap 12 mmol/L (10-20); BUN (Urea Nitrogen) 15 mg/dL (7.0-18.7); Calc. Creatinine Clearance 120 mL/min (70-130); Calcium 8.7 mg/dL (7.8-10.44); Carbon Dioxide 20 mmol/L (22-29); Chloride 103 mmol/L (98-107); Estimated GFR-MDRD 85; Glucose 384 mg/dL (70-105); Potassium 4.1 mmol/L (3.5-5.1); Sodium 131 mmol/L (136-145)
[2017-10-18 04:42] LABS: Amphetamine Not Detected (NotDetected); Barbiturates Screen Not Detected (NotDetected); Benzodiazepine Screen Not Detected (NotDetected); Cocaine Metabolite Screen Not Detected (NotDetected); Medtox Control Line Valid? VALID (VALID); Medtox Reader # READER 1; Methadone Not Detected (NotDetected); Methamphetamine Not Detected (NotDetected); Opiate Screen Not Detected (NotDetected); Oxycodone Screen Not Detected (NotDetected); Phencyclidine (PCP) Not Detected (NotDetected); THC/Cannabinoid Screen Not Detected (NotDetected); Tricyclic Screen Not Detected (NotDetected)
[2017-10-18] MEDS ORDERED: traMADol HCl 50 MG TAB PO PRN (05:28)
[2017-10-18] MEDS ORDERED: metroNIDAZOLE 500 MG TAB PO SCH (09:00)
[2017-10-18] MEDS ORDERED: Insulin Detemir 100 UNITS/ML 15 UNITS in Pre-Filled Syringe 1 EACH SC SCH (09:00)
[2017-10-18 15:14] LABS: Anion Gap 12 mmol/L (10-20); BUN (Urea Nitrogen) 12 mg/dL (7.0-18.7); Calc. Creatinine Clearance 132 mL/min (70-130); Calcium 8.5 mg/dL (7.8-10.44); Carbon Dioxide 19 mmol/L (22-29); Chloride 103 mmol/L (98-107); Estimated GFR-MDRD Greater than 90; Glucose 380 mg/dL (70-105); Potassium 4.2 mmol/L (3.5-5.1); Sodium 130 mmol/L (136-145)
[2017-10-18 17:23] VITALS: BP 113/72; TEMP 98
[2017-10-18 18:00] LABS: Chlamydia by PCR Not Detected (NotDetected); GC by PCR Not Detected (NotDetected)
[2017-10-19] MEDS ORDERED: cefTRIAXone\\ROCEPHIN 1 GM in Sterile Water 10 ML SLOW IVP SCH (00:30)
[2017-10-19 12:38] LABS: Base Excess-Venous -1.6 mmol/L (0 (+/- 2.5)); Bicarbonate (HCO3v) 23.5 mmol/L (1.0-85.0); CO2 Tension (PvCO2) 40.3 mmHg (41.0-51.0); Calcium, Ionized 1.13 mmol/L (1.12-1.32); Hemoglobin - Calc 15.8 g/dL (12.0-18.0); O2 Tension (PvO2) 41.6 mmHg (35.0-45.0); Potassium 4.5 mmol/L (3.4-4.7); T. Carbon Dioxide 24.7 mmol/L (1.0-85.0); pH (Venous) 7.374 (7.35-7.45); vO2 Saturation-calc 75.7 % (94-98)
--- NOTE | 2017-10-20 10:01 | DIS-2 ---
DATE OF ADMISSION: 10/18/2017 DATE OF DISCHARGE: 10/18/2017 LOCATION: [facility] in [place], [place]. ADMITTING ATTENDING: Dr. Wilton Hardy. DISCHARGE ATTENDING: Dr. Wilton Hardy. CO-SIGNER: Dr. Wilton Hardy. CONSULTATIONS: None. PROCEDURES: None. PRIMARY DIAGNOSES: 1. Hyperglycemia. 2. Urinary tract infection. 3. Ashlyn vaginitis. SECONDARY DIAGNOSES: 1. Bacterial vaginosis. 2. Hypertension. 3. Hyponatremia. 4. Anemia. 5. Type 2 diabetes mellitus. HISTORY OF PRESENT ILLNESS AND HOSPITAL COURSE: The patient is a 32-year-old female who is an extrem eliana poorly controlled diabetic with history of medical noncompliance in the past who came in to the E R with chief complaint of vaginal pain, itching for the last month duration and reported she had a co nstant yeast infection in the last few months, but the pain has progressively worsened. She states s he normally takes 40 units of 70/30 daily in addition to 500, metformin b.i.d.; however, this does no t match her most recent clinic chart note which was approximately 1 year prior to presentation to the ED. In the ED, her blood glucose was found to be 714 and she was given 10 units of regular insulin, then 2 liter bolus which improved her blood glucose to 399. The patient was treated with Macrobid, Flagyl, and Diflucan for the vulvovaginitis and yeast infection. Additionally, she was restarted on metformin 500 mg p.o. b.i.d. and switched to Levemir 15 units b.i.d. prior to discharge. Overall, th e patient had an uncomplicated hospital course and left the hospital in stable condition with strict instructions to follow up closely with her primary care provider for insulin management. DISPOSITION: The patient left the hospital in stable condition. DISCHARGE INSTRUCTIONS: 1. Location: The patient discharged to home. 2. Diet: Consistent carbohydrates, heart healthy. 3. Activity: ad lizett. 4. Followup: Follow up with PCP in 7-10 days following discharge.
== END 2017-10-18 14:52 | disposition home or self-care (01) | DRG 638 ==
LOC: ERS 22:43 → T4-B 10-18 01:52
PROVIDERS: ADMIT Family Medicine; ATTEND Family Medicine
DX: E11.10 Type 2 diabetes mellitus with ketoacidosis without coma (principal); N30.00 Acute cystitis without hematuria; N17.9 Acute kidney failure, unspecified; E87.2 Acidosis; B37.3 Candidiasis of vulva and vagina; E86.0 Dehydration; F32.9 Major depressive disorder, single episode, unspecified; I10 Essential (primary) hypertension; F17.210 Nicotine dependence, cigarettes, uncomplicated; Z79.4 Long term (current) use of insulin; Z88.8 Allergy status to other drugs, medicaments and biological substances
CPT/HCPCS: 36415; 36416; 80048; 80053; 80306; 81003; 81015; 81025; 82010; 82330; 82435; 82803; 83036; 83605; 83735; 83930; 84100; 84132; 84295; 85014; 85025; 87077; 87086; 87186; 87480; 87491; 87510; 87591; 87660; 96361; 96372; 96374; 99406; J0696; J1815

== ENCOUNTER 2017-10-21 16:03 | Emergency (ER) | payer OTHER ==
[2017-10-21 17:05] LABS: Bilirubin Negative (Negative); Blood, Urine Negative (Negative); Clarity CLEAR (Clear); Glucose, Urine (Dipstick) >=1000 mg/dL (Negative); Leukocyte Negative (Negative); Nitrite Negative (Negative); Protein, Urine (Dipstick) Negative (Neg-Trace); Specific Gravity, Urine 1.037 (1.002-1.036); Urobilinogen 0.2 mg/dL (0.2-1.0); pH, Urine 5.5 (5.0-9.0)
[2017-10-21 17:07] LABS: Pregnancy Test - Urine (BHCG) Negative (Negative); Pregu Control Background? CLEAR/WHITE (CLR/WHITE); Pregu Control Bar Appear? YES (CONTROL BAR); Specific Gravity 1.037 (1.002-1.036)
[2017-10-21 17:23] LABS: #Eosinphils 0.1 thou/uL (0.0-0.7); #Monocytes 0.5 thou/uL (0.11-0.59); %Basophils 0.4 % (0.0-1.0); %Eosinophils 0.9 % (0.0-10.0); %Lymphocytes 20.5 % (21.0-51.0); %Monocytes 5.3 % (0.0-10.0); %Neutrophils 72.9 % (42.0-75.0); Mean Corpuscular HGB CONC 33.5 g/dL (32.0-36.0); Mean Corpuscular Hemoglobin 26.7 pg (27.0-31.0); Mean Corpuscular Volume 79.8 fl (81.0-99.0); Mean Platelet Volume 9.2 fL (7.4-10.4); Platelet Count 225 thou/uL (130-400); Red Blood Cell (RBC) Count 5.24 mill/uL (4.20-5.40); White Blood Cell (WBC) Count 9.6 thou/uL (4.8-10.8)
[2017-10-21 17:39] LABS: ALT (SGPT) 40 U/L (8-55); AST (SGOT) 14 U/L (5-34); Albumin 3.4 g/dL (3.5-5.0); Alkaline Phosphatase 122 U/L (40-150); Anion Gap 16 mmol/L (10-20); BUN (Urea Nitrogen) 13 mg/dL (7.0-18.7); Bilirubin, Total 0.3 mg/dL (0.2-1.2); Calc. Creatinine Clearance 0 mL/min (70-130); Carbon Dioxide 20 mmol/L (22-29); Chloride 97 mmol/L (98-107); Estimated GFR-MDRD 58; Globulin 3.2 g/dL (2.4-3.5); Lipase 42 U/L (8-78); Potassium 4.6 mmol/L (3.5-5.1); Protein, Total 6.6 g/dL (6.0-8.3); Sodium 128 mmol/L (136-145)
[2017-10-21 17:42] LABS: Glucose 569 mg/dL (70-105)
[2017-10-21] MEDS ORDERED: Insulin Regular 300 UNITS/3 ML VIAL ONE (17:44)
== END 2017-10-21 20:32 | disposition home or self-care (01) ==
LOC: ERS 16:03
DX: E11.65 Type 2 diabetes mellitus with hyperglycemia (principal); M54.5 Low back pain; F41.9 Anxiety disorder, unspecified; F17.210 Nicotine dependence, cigarettes, uncomplicated; Z79.4 Long term (current) use of insulin; Z79.899 Other long term (current) drug therapy
CPT/HCPCS: 36415; 36416; 80053; 81003; 81025; 83690; 85025; 96360; 96361; 96372; J1815

== ENCOUNTER 2017-12-01 22:15 | Emergency (ER) | payer OTHER ==
[2017-12-01 23:15] LABS: Bilirubin Negative (Negative); Blood, Urine Negative (Negative); Clarity CLEAR (Clear); Glucose, Urine (Dipstick) >=1000 mg/dL (Negative); Leukocyte Negative (Negative); Nitrite Negative (Negative); Protein, Urine (Dipstick) Negative (Neg-Trace); Urobilinogen 0.2 mg/dL (0.2-1.0); pH, Urine 6.5 (5.0-9.0)
[2017-12-01 23:17] LABS: Pregnancy Test - Urine (BHCG) Negative (Negative); Pregu Control Background? CLEAR/WHITE (CLR/WHITE); Pregu Control Bar Appear? YES (CONTROL BAR)
[2017-12-01 23:39] LABS: #Lymphocytes 1.8 thou/uL (1.20-3.40); #Monocytes 0.4 thou/uL (0.11-0.59); #Neutrophils 5.1 thou/uL (1.40-6.50); %Basophils 0.7 % (0.0-1.0); %Eosinophils 0.6 % (0.0-10.0); %Lymphocytes 24.9 % (21.0-51.0); %Monocytes 4.9 % (0.0-10.0); %Neutrophils 68.9 % (42.0-75.0); Mean Corpuscular HGB CONC 34.1 g/dL (32.0-36.0); Mean Corpuscular Hemoglobin 26.6 pg (27.0-31.0); Mean Platelet Volume 9.5 fL (7.4-10.4); Platelet Count 238 thou/uL (130-400); RBC Distribution Width 13.1 % (11.5-14.5); Red Blood Cell (RBC) Count 5.26 mill/uL (4.20-5.40); White Blood Cell (WBC) Count 7.4 thou/uL (4.8-10.8)
[2017-12-01 23:57] LABS: ALT (SGPT) 13 U/L (8-55); AST (SGOT) 12 U/L (5-34); Albumin 3.7 g/dL (3.5-5.0); Alkaline Phosphatase 111 U/L (40-150); Anion Gap 14 mmol/L (10-20); BUN (Urea Nitrogen) 13 mg/dL (7.0-18.7); Bilirubin, Total 0.3 mg/dL (0.2-1.2); Calc. Creatinine Clearance 0 mL/min (70-130); Carbon Dioxide 24 mmol/L (22-29); Chloride 96 mmol/L (98-107); Estimated GFR-MDRD 66; Globulin 3.4 g/dL (2.4-3.5); Potassium 3.9 mmol/L (3.5-5.1); Protein, Total 7.1 g/dL (6.0-8.3); Sodium 130 mmol/L (136-145)
[2017-12-02 00:07] LABS: Glucose 552 mg/dL (70-105)
[2017-12-02] MEDS ORDERED: Insulin Glargine 35 UNITS in Pre-Filled Syringe 1 EACH SC SCH (00:15)
[2017-12-02] MEDS ORDERED: Lidocaine 1% PF 5 ML VIAL ONE (00:20)
[2017-12-02] MEDS ORDERED: cefTRIAXone\\ROCEPHIN 250 MG VIAL ONE (00:20)
[2017-12-02 00:21] LABS: CKMB 0.3 ng/mL (0-6.6); Troponin I Less than 0.010 ng/mL (< 0.028)
[2017-12-02] MEDS ORDERED: Azithromycin 250 MG TAB ONE (00:39)
--- NOTE | 2017-12-02 07:42 | RAD ---
CHEST 1 VIEW: HISTORY: Chest pain. COMPARISON: 09/28/16. FINDINGS: Cardiac silhouette is magnified by projection. Pulmonary vasculature unremarkable. Mediastinum midl ine. No lobar consolidation or evidence of pneumothorax. IMPRESSION: No active cardiopulmonary abnormalities are demonstrated. POS: [facility]
--- NOTE | 2017-12-02 14:53 | EKG ---
Test Reason : Blood Pressure : / mmHG Vent. Rate : 078 BPM Atrial Rate : 078 BPM P-R Int : 152 ms QRS Dur : 086 ms QT Int : 398 ms P-R-T Axes : 011 010 026 degrees QTc Int : 453 ms Normal sinus rhythm Normal ECG Confirmed by MELISSA GARVIN M.D. ([id number]), society editor JUSTIN WISEMAN ([id number]) on 12/02/2017 2:52:37 PM Referred By: Confirmed By:MELISSA GARVIN M.D.
[2017-12-04 01:35] LABS: Chlamydia by PCR Not Detected (NotDetected); GC by PCR Not Detected (NotDetected)
== END 2017-12-02 02:02 | disposition home or self-care (01) ==
LOC: ERS 22:15
DX: E11.65 Type 2 diabetes mellitus with hyperglycemia (principal); B37.3 Candidiasis of vulva and vagina; R07.9 Chest pain, unspecified; D64.9 Anemia, unspecified; F41.9 Anxiety disorder, unspecified; Z79.4 Long term (current) use of insulin
CPT/HCPCS: 36416; 71045; 80053; 81003; 81025; 82553; 84484; 85025; 87480; 87491; 87510; 87591; 87660; 93005; 96360; 96361; 96372; J0696; J2001

== ENCOUNTER 2018-01-23 21:25 | Emergency (ER) | payer OTHER ==
[~2018-01-23 21:25] MED LIST: ISOVUE-370 76%-LOCM 1 ML ONE
[2018-01-23] MEDS ORDERED: Ondansetron HCl/PF 4 MG/2 ML Vial ONE (21:48)
[2018-01-23 21:52] LABS: #Eosinphils 0.1 thou/uL (0.0-0.7); #Lymphocytes 0.8 thou/uL (1.20-3.40); #Monocytes 0.3 thou/uL (0.11-0.59); #Neutrophils 6.2 thou/uL (1.40-6.50); %Basophils 0.2 % (0.0-1.0); %Eosinophils 0.9 % (0.0-10.0); %Lymphocytes 10.4 % (21.0-51.0); %Monocytes 4.4 % (0.0-10.0); %Neutrophils 84.1 % (42.0-75.0); Hemoglobin 14.3 g/dL (12.0-16.0); Mean Corpuscular HGB CONC 33.7 g/dL (32.0-36.0); Mean Corpuscular Hemoglobin 25.8 pg (27.0-31.0); Mean Corpuscular Volume 76.6 fL (78.0-98.0); Mean Platelet Volume 8.8 fL (7.4-10.4); Platelet Count 205 thou/uL (130-400); RBC Distribution Width 13.8 % (11.5-14.5); Red Blood Cell (RBC) Count 5.55 mill/uL (4.20-5.40); White Blood Cell (WBC) Count 7.4 thou/uL (4.8-10.8)
[2018-01-23 22:11] LABS: Bilirubin Negative (Negative); Blood, Urine Moderate (Negative); Clarity CLEAR (Clear); Glucose, Urine (Dipstick) >=1000 mg/dL (Negative); Leukocyte Negative (Negative); Nitrite Negative (Negative); Protein, Urine (Dipstick) 30 mg/dL (Neg-Trace); Urobilinogen 0.2 mg/dL (0.2-1.0)
[2018-01-23 22:15] LABS: ALT (SGPT) 32 U/L (8-55); AST (SGOT) 15 U/L (5-34); Albumin 3.7 g/dL (3.5-5.0); Alkaline Phosphatase 112 U/L (40-150); Anion Gap 14 mmol/L (10-20); BUN (Urea Nitrogen) 10 mg/dL (7.0-18.7); Bilirubin, Total 0.8 mg/dL (0.2-1.2); Calc. Creatinine Clearance 0 mL/min (70-130); Calcium 9.1 mg/dL (7.8-10.44); Carbon Dioxide 21 mmol/L (22-29); Chloride 102 mmol/L (98-107); Estimated GFR-MDRD 71; Globulin 3.1 g/dL (2.4-3.5); Glucose 366 mg/dL (70-105); Lipase 23 U/L (8-78); Magnesium 1.8 mg/dL (1.6-2.6); Phosphorus 2.6 mg/dL (2.3-4.7); Potassium 3.4 mmol/L (3.5-5.1); Protein, Total 6.8 g/dL (6.0-8.3); Sodium 134 mmol/L (136-145)
[2018-01-23 22:16] LABS: Bacteria/HPF None Seen HPF (None Seen); Hyaline Casts/LPF 4-6 HYALINE CAST LPF (0-3 Hyaline); Pathc Cast-AUWi Flag 0.43 (0-2.49); Squamous Epithelial 0-3 HPF (0-3)
[2018-01-23 22:17] LABS: Specific Gravity, Urine 1.046 (1.002-1.036)
[2018-01-23 22:23] LABS: Specific Gravity 1.046 (1.002-1.036)
[2018-01-23 22:27] LABS: Pregnancy Test - Urine (BHCG) Negative (Negative); Pregu Control Background? CLEAR/WHITE (CLR/WHITE); Pregu Control Bar Appear? YES (CONTROL BAR)
--- NOTE | 2018-01-24 10:14 | CT ---
CONTRAST ENHANCED CT IMAGES ABDOMEN AND PELVIS 01/23/18 HISTORY: 33-year-old with history of nausea, vomiting, and diarrhea for two days. Left lower quadrant pain. No history of fevers or chills. Contrast enhanced CT images of the abdomen and pelvis demonstrate the lung bases to be unremarkable. No evidence of free intraperitoneal air seen. The liver and spleen are unremarkable. The gallbladder has been surgically removed. The pancreas is u nremarkable. Adrenal glands unremarkable. The kidneys are unremarkable. Abdominal aorta is unremarkable. The superior mesenteric artery and vein as well as celiac arteries are unremarkable. Both renal arteries are patent. No dilated loops of small bowel seen. A normal appendix is seen. The colon is not significantly distended. No significant evidence of bowel obstruction seen. The pelv is is otherwise unremarkable. Osseous structures intact. IMPRESSION: Previous cholecystectomy. No other significant intra-abdominal or pelvic abnormality seen. POS: [facility]
== END 2018-01-24 01:33 | disposition home or self-care (01) ==
LOC: ERS 21:25
DX: E11.65 Type 2 diabetes mellitus with hyperglycemia (principal); R19.7 Diarrhea, unspecified; R11.2 Nausea with vomiting, unspecified; D64.9 Anemia, unspecified; F32.9 Major depressive disorder, single episode, unspecified; F41.9 Anxiety disorder, unspecified; F17.210 Nicotine dependence, cigarettes, uncomplicated; Z79.4 Long term (current) use of insulin; Z79.899 Other long term (current) drug therapy
CPT/HCPCS: 36416; 74177; 80053; 81003; 81015; 81025; 82010; 83690; 83735; 84100; 85025; 87077; 87086; 96361; 96372; 96374; J2405

== ENCOUNTER 2018-04-09 16:17 | Emergency (ER) | payer OTHER ==
[2018-04-09] MEDS ORDERED: Lidocaine 1% (PF) 30 ML VIAL ONE (17:39)
[2018-04-09] MEDS ORDERED: Ketorolac Tromethamine 30 MG/ML VIAL ONE (18:13)
== END 2018-04-09 18:52 | disposition home or self-care (01) ==
LOC: ERS 16:17
DX: N75.1 Abscess of Bartholin's gland (principal); E11.9 Type 2 diabetes mellitus without complications; F17.210 Nicotine dependence, cigarettes, uncomplicated; Z79.84 Long term (current) use of oral hypoglycemic drugs
CPT/HCPCS: 56420; 87070; 87077; 87205; 96372; J1885; J2001

== ENCOUNTER 2018-05-18 08:58 | Emergency (ER) | payer OTHER ==
[2018-05-18 10:15] LABS: #Eosinphils 0.1 thou/uL (0.0-0.7); #Monocytes 0.4 thou/uL (0.11-0.59); #Neutrophils 5.9 thou/uL (1.40-6.50); %Basophils 0.3 % (0.0-1.0); %Eosinophils 0.9 % (0.0-10.0); %Lymphocytes 23.9 % (21.0-51.0); %Monocytes 4.6 % (0.0-10.0); %Neutrophils 70.3 % (42.0-75.0); Hemoglobin 14.1 g/dL (12.0-16.0); Mean Corpuscular Hemoglobin 24.9 pg (27.0-31.0); Mean Corpuscular Volume 77.7 fL (78.0-98.0); Mean Platelet Volume 9.6 fL (7.4-10.4); Platelet Count 219 thou/uL (130-400); RBC Distribution Width 13.6 % (11.5-14.5); Red Blood Cell (RBC) Count 5.66 mill/uL (4.20-5.40); White Blood Cell (WBC) Count 8.3 thou/uL (4.8-10.8)
[2018-05-18 10:22] LABS: Bilirubin Negative (Negative); Blood, Urine Negative (Negative); Clarity CLEAR (Clear); Glucose, Urine (Dipstick) >=1000 mg/dL (Negative); Leukocyte Negative (Negative); Nitrite Negative (Negative); Protein, Urine (Dipstick) Negative (Neg-Trace); Urobilinogen 0.2 mg/dL (0.2-1.0); pH, Urine 5.5 (5.0-9.0)
[2018-05-18 10:24] LABS: Specific Gravity, Urine 1.044 (1.002-1.036)
--- NOTE | 2018-05-18 10:53 | ULT ---
ULTRASOUND PELVIC TRANSVAGINAL WITH DOPPLER: Date: 05/18/18 HISTORY: Pelvic pain. COMPARISON: Ultrasound dated 05/27/17. TECHNIQUE: Real-time Monroy scale and color Doppler with spectral analysis of the pelvis performed via transabdomi nal and transvaginal approach. FINDINGS: Uterus measures 8.9 x 5.7 x 5.6 cm. Endometrial thickness is 1.7 cm. Right ovary measures 3.7 x 2.1 x 2.1 cm. Left ovary measures 2.7 x 1.5 x 2.1 cm. Adequate vascular flow to both ovaries. There is likely a corpus luteal involuting cyst of the right ovary. IMPRESSION: Unremarkable examination of the pelvis. POS: [facility]
[2018-05-18 11:46] LABS: ALT (SGPT) 11 U/L (8-55); AST (SGOT) 13 U/L (5-34); Albumin 3.3 g/dL (3.5-5.0); Alkaline Phosphatase 87 U/L (40-150); Anion Gap 14 mmol/L (10-20); BUN (Urea Nitrogen) 16 mg/dL (7.0-18.7); Bilirubin, Total 0.3 mg/dL (0.2-1.2); Calc. Creatinine Clearance 0 mL/min (70-130); Calcium 9.1 mg/dL (7.8-10.44); Carbon Dioxide 20 mmol/L (22-29); Chloride 103 mmol/L (98-107); Estimated GFR-MDRD 76; Globulin 3.2 g/dL (2.4-3.5); Glucose 439 mg/dL (70-105); Protein, Total 6.5 g/dL (6.0-8.3); Sodium 133 mmol/L (136-145)
[2018-05-19 02:01] LABS: GC by PCR Not Detected (NotDetected)
[2018-05-19 02:02] LABS: Chlamydia by PCR Not Detected (NotDetected)
== END 2018-05-18 12:52 | disposition home or self-care (01) ==
LOC: ERS 08:58
DX: B37.3 Candidiasis of vulva and vagina (principal); E11.9 Type 2 diabetes mellitus without complications; R10.30 Lower abdominal pain, unspecified; F41.9 Anxiety disorder, unspecified; F32.9 Major depressive disorder, single episode, unspecified; F17.210 Nicotine dependence, cigarettes, uncomplicated; D64.9 Anemia, unspecified; Z79.4 Long term (current) use of insulin
CPT/HCPCS: 36415; 76856; 80053; 81003; 85025; 87480; 87491; 87510; 87591; 87660

== ENCOUNTER 2018-05-26 06:43 | Emergency (ER) | payer OTHER ==
[2018-05-26 07:10] LABS: Bilirubin Negative (Negative); Blood, Urine Large (Negative); Glucose, Urine (Dipstick) >=1000 mg/dL (Negative); Protein, Urine (Dipstick) 100 mg/dL (Neg-Trace)
[2018-05-26 07:17] LABS: Clarity Opaque (Clear)
[2018-05-26 07:18] LABS: Leukocyte Unable to Interpret (Negative); Nitrite Unable to Interpret (Negative); Specific Gravity, Urine 1.049 (1.002-1.036)
[2018-05-26 07:19] LABS: Pregnancy Test - Urine (BHCG) Negative (Negative); Pregu Control Background? CLEAR/WHITE (CLR/WHITE); Pregu Control Bar Appear? YES (CONTROL BAR); Specific Gravity 1.049 (1.002-1.036); Urobilinogen UNABLE TO INTERPRET mg/dL (0.2-1.0)
[2018-05-26 07:27] LABS: Bacteria/HPF None Seen HPF (None Seen); RBC/HPF GREATER THAN 50-TNTC HPF (0-3); WBC/HPF 0-3 HPF (0-3)
[2018-05-26 07:28] LABS: Crystals/HPF None Seen HPF (Negative); Hyaline Casts/LPF NONE SEEN LPF (0-3 Hyaline)
[2018-05-26] MEDS ORDERED: Ketorolac Tromethamine 60 MG/2 ML VIAL ONE (07:56)
== END 2018-05-26 08:20 | disposition home or self-care (01) ==
LOC: ERS 06:43
DX: N94.6 Dysmenorrhea, unspecified (principal); E11.9 Type 2 diabetes mellitus without complications; D64.9 Anemia, unspecified; F32.9 Major depressive disorder, single episode, unspecified; F41.9 Anxiety disorder, unspecified; F17.210 Nicotine dependence, cigarettes, uncomplicated; Z79.4 Long term (current) use of insulin
CPT/HCPCS: 81003; 81015; 81025; 96372; J1885

== ENCOUNTER 2018-08-27 11:16 | Emergency (ER) | payer OTHER ==
[2018-08-27 12:12] LABS: #Basophils 0.1 thou/uL (0.0-0.2); #Eosinphils 0.1 thou/uL (0.0-0.7); #Lymphocytes 2.1 thou/uL (1.20-3.40); #Monocytes 0.4 thou/uL (0.11-0.59); #Neutrophils 4.7 thou/uL (1.40-6.50); %Basophils 0.8 % (0.0-1.0); %Eosinophils 1.3 % (0.0-10.0); %Lymphocytes 28.3 % (21.0-51.0); %Neutrophils 64.6 % (42.0-75.0); Hemoglobin 14.3 g/dL (12.0-16.0); Mean Corpuscular Hemoglobin 25.4 pg (27.0-31.0); Mean Corpuscular Volume 76.9 fL (78.0-98.0); Mean Platelet Volume 9.6 fL (7.4-10.4); Platelet Count 200 thou/uL (130-400); RBC Distribution Width 14.3 % (11.5-14.5); Red Blood Cell (RBC) Count 5.66 mill/uL (4.20-5.40); White Blood Cell (WBC) Count 7.3 thou/uL (4.8-10.8)
[2018-08-27 12:35] LABS: ALT (SGPT) 9 U/L (8-55); AST (SGOT) 9 U/L (5-34); Albumin 3.6 g/dL (3.5-5.0); Alkaline Phosphatase 95 U/L (40-150); Anion Gap 13 mmol/L (10-20); BUN (Urea Nitrogen) 9 mg/dL (7.0-18.7); Bilirubin, Total 0.3 mg/dL (0.2-1.2); Calc. Creatinine Clearance 0 mL/min (70-130); Calcium 9.4 mg/dL (7.8-10.44); Carbon Dioxide 23 mmol/L (22-29); Chloride 103 mmol/L (98-107); Estimated GFR-MDRD 82; Glucose 425 mg/dL (70-105); Potassium 3.6 mmol/L (3.5-5.1); Protein, Total 6.6 g/dL (6.0-8.3); Sodium 135 mmol/L (136-145)
[2018-08-27 13:39] LABS: Bilirubin Negative (Negative); Blood, Urine Negative (Negative); Clarity CLEAR (Clear); Glucose, Urine (Dipstick) >=1000 mg/dL (Negative); Leukocyte Negative (Negative); Nitrite Positive (Negative); Protein, Urine (Dipstick) Negative (Neg-Trace); Urobilinogen 0.2 mg/dL (0.2-1.0)
[2018-08-27 13:49] LABS: Bacteria/HPF 2+ HPF (None Seen); Hyaline Casts/LPF 0-3 HYALINE CAST LPF (0-3 Hyaline); Squamous Epithelial 0-3 HPF (0-3)
[2018-08-27 13:53] LABS: Specific Gravity, Urine 1.045 (1.002-1.036)
[2018-08-27 13:55] LABS: Pregnancy Test - Urine (BHCG) Negative (Negative); Pregu Control Background? CLEAR/WHITE (CLR/WHITE); Pregu Control Bar Appear? YES (CONTROL BAR); Specific Gravity 1.045 (1.002-1.036)
[2018-08-27 14:11] LABS: RBC/HPF 0-3 HPF (0-3)
== END 2018-08-27 15:16 | disposition home or self-care (01) ==
LOC: ERS 11:16
DX: E11.65 Type 2 diabetes mellitus with hyperglycemia (principal); N39.0 Urinary tract infection, site not specified; E11.9 Type 2 diabetes mellitus without complications; D64.9 Anemia, unspecified; F41.9 Anxiety disorder, unspecified; F32.9 Major depressive disorder, single episode, unspecified; F17.210 Nicotine dependence, cigarettes, uncomplicated; Z79.4 Long term (current) use of insulin
CPT/HCPCS: 36415; 36416; 80053; 81003; 81015; 81025; 82010; 85025; 87077; 87086; 87186; 96360; 96361

== ENCOUNTER 2018-09-26 04:14 | Emergency (ER) | payer OTHER ==
[2018-09-26 05:17] LABS: Bilirubin Negative (Negative); Blood, Urine Negative (Negative); Clarity CLEAR (Clear); Glucose, Urine (Dipstick) >=1000 mg/dL (Negative); Leukocyte Negative (Negative); Nitrite Negative (Negative); Protein, Urine (Dipstick) Negative (Neg-Trace); Specific Gravity, Urine 1.023 (1.002-1.036); Urobilinogen 0.2 mg/dL (0.2-1.0)
[2018-09-26 05:22] LABS: Pregnancy Test - Urine (BHCG) Negative (Negative); Pregu Control Background? CLEAR/WHITE (CLR/WHITE); Pregu Control Bar Appear? YES (CONTROL BAR); Specific Gravity 1.023 (1.002-1.036)
[2018-09-26 05:29] LABS: #Lymphocytes 2.2 thou/uL (1.20-3.40); #Monocytes 0.3 thou/uL (0.11-0.59); %Basophils 0.7 % (0.0-1.0); %Eosinophils 0.6 % (0.0-10.0); %Lymphocytes 29.7 % (21.0-51.0); %Monocytes 3.5 % (0.0-10.0); %Neutrophils 65.7 % (42.0-75.0); Mean Corpuscular HGB CONC 33.5 g/dL (32.0-36.0); Mean Corpuscular Hemoglobin 26.5 pg (27.0-31.0); Platelet Count 191 thou/uL (130-400); RBC Distribution Width 14.4 % (11.5-14.5); Red Blood Cell (RBC) Count 5.64 mill/uL (4.20-5.40); White Blood Cell (WBC) Count 7.5 thou/uL (4.8-10.8)
[2018-09-26 05:31] LABS: Amphetamine Not Detected (NotDetected); Barbiturates Screen Not Detected (NotDetected); Benzodiazepine Screen Not Detected (NotDetected); Cocaine Metabolite Screen Not Detected (NotDetected); Medtox Control Line Valid? VALID (VALID); Medtox Reader # READER 4; Methadone Not Detected (NotDetected); Methamphetamine Not Detected (NotDetected); Opiate Screen Not Detected (NotDetected); Oxycodone Screen Not Detected (NotDetected); Phencyclidine (PCP) Not Detected (NotDetected); THC/Cannabinoid Screen Not Detected (NotDetected); Tricyclic Screen Not Detected (NotDetected)
[2018-09-26 05:42] LABS: Base Excess-Venous -4.8 mmol/L (-2.0 to 3.0); Bicarbonate (HCO3v) 19.5 mmol/L (22.0-28.0); CO2 Tension (PvCO2) 33.4 mmHg (40.0-50.0); Calcium, Ionized 1.06 mmol/L (See Comments:); Chloride 107 mmol/L (98-107); Hemoglobin - Calc 14.7 g/dL (12.0-16.0); O2 Tension (PvO2) 129.8 mmHg (35.0-45.0); Potassium 3.4 mmol/L (3.5-5.1); Sodium 139 mmol/L (138-145); T. Carbon Dioxide 20.5 mmol/L (22.0-28.0); pH (Venous) 7.375 (7.320-7.430); vO2 Saturation-calc 98.9 % (60.0-85.0)
[2018-09-26 05:47] LABS: ALT (SGPT) 13 U/L (8-55); AST (SGOT) 12 U/L (5-34); Albumin 3.7 g/dL (3.5-5.0); Alkaline Phosphatase 105 U/L (40-150); Anion Gap 18 mmol/L (10-20); BUN (Urea Nitrogen) 10 mg/dL (7.0-18.7); Bilirubin, Total 0.2 mg/dL (0.2-1.2); CK (CPK) 51 U/L (29-168); Calc. Creatinine Clearance 0 mL/min (70-130); Carbon Dioxide 19 mmol/L (22-29); Chloride 105 mmol/L (98-107); Estimated GFR-MDRD 90; Globulin 3.1 g/dL (2.4-3.5); Glucose 391 mg/dL (70-105); Magnesium 1.8 mg/dL (1.6-2.6); Phosphorus 3.1 mg/dL (2.3-4.7); Potassium 3.5 mmol/L (3.5-5.1); Protein, Total 6.8 g/dL (6.0-8.3); Sodium 138 mmol/L (136-145)
[2018-09-26] MEDS ORDERED: Insulin Regular 300 UNITS/3 ML VIAL ONE (05:53)
[2018-09-26 05:56] LABS: Acetaminophen Less than 6.0 mcg/mL (10.0-30.0); Alcohol 150 mg/dL (Less than 10); Salicylate Less than 8.0 mg/dL (15.0-30.0)
--- NOTE | 2018-09-26 09:04 | RAD ---
CHEST 1 VIEW: Date: 09/26/18 HISTORY: Hyperventilation, elevated blood sugar. History of depression. COMPARISON: 12/01/17. FINDINGS: Heart size is normal. The lungs are clear. No pneumonia, edema, pleural effusion, or other acute proc ess. IMPRESSION: No acute intrathoracic disease. POS: [facility]
== END 2018-09-26 13:45 | disposition home or self-care (01) ==
LOC: ERS 04:14
DX: F10.129 Alcohol abuse with intoxication, unspecified (principal); F32.9 Major depressive disorder, single episode, unspecified; E11.9 Type 2 diabetes mellitus without complications; D64.9 Anemia, unspecified; F41.9 Anxiety disorder, unspecified; F17.210 Nicotine dependence, cigarettes, uncomplicated; Z79.4 Long term (current) use of insulin; Y90.6 Blood alcohol level of 120-199 mg/100 ml
CPT/HCPCS: 36415; 36416; 71045; 80053; 80306; 80307; 81003; 81025; 82010; 82330; 82550; 82803; 83735; 84100; 84443; 84484; 85025; 96361; 96374; J1815

== ENCOUNTER 2018-11-13 12:20 | Emergency (ER) | payer OTHER ==
[2018-11-13 14:07] LABS: #Eosinphils 0.1 thou/uL (0.0-0.7); #Lymphocytes 1.7 thou/uL (1.20-3.40); #Monocytes 0.3 thou/uL (0.11-0.59); #Neutrophils 5.7 thou/uL (1.40-6.50); %Basophils 0.4 % (0.0-1.0); %Eosinophils 0.8 % (0.0-10.0); %Lymphocytes 21.9 % (21.0-51.0); %Monocytes 4.2 % (0.0-10.0); %Neutrophils 72.7 % (42.0-75.0); Hemoglobin 15.3 g/dL (12.0-16.0); Mean Corpuscular HGB CONC 34.5 g/dL (32.0-36.0); Mean Corpuscular Hemoglobin 28.2 pg (27.0-31.0); Mean Corpuscular Volume 81.8 fL (78.0-98.0); Mean Platelet Volume 9.3 fL (7.4-10.4); Platelet Count 213 thou/uL (130-400); RBC Distribution Width 12.7 % (11.5-14.5); Red Blood Cell (RBC) Count 5.41 mill/uL (4.20-5.40); White Blood Cell (WBC) Count 7.8 thou/uL (4.8-10.8)
[2018-11-13 14:28] LABS: ALT (SGPT) 10 U/L (8-55); AST (SGOT) 9 U/L (5-34); Albumin 3.6 g/dL (3.5-5.0); Alkaline Phosphatase 86 U/L (40-150); Anion Gap 13 mmol/L (10-20); BUN (Urea Nitrogen) 7 mg/dL (7.0-18.7); Bilirubin, Total 0.4 mg/dL (0.2-1.2); Calc. Creatinine Clearance 0 mL/min (70-130); Calcium 9.6 mg/dL (7.8-10.44); Carbon Dioxide 24 mmol/L (22-29); Chloride 102 mmol/L (98-107); Estimated GFR-MDRD 83; Glucose 451 mg/dL (70-105); Magnesium 1.8 mg/dL (1.6-2.6); Potassium 3.8 mmol/L (3.5-5.1); Protein, Total 6.6 g/dL (6.0-8.3); Sodium 135 mmol/L (136-145)
[2018-11-13 14:56] LABS: Bilirubin Negative (Negative); Blood, Urine Negative (Negative); Clarity CLEAR (Clear); Glucose, Urine (Dipstick) >=1000 mg/dL (Negative); Leukocyte Negative (Negative); Nitrite Negative (Negative); Protein, Urine (Dipstick) Negative (Neg-Trace); Specific Gravity, Urine 1.044 (1.002-1.036); Urobilinogen 0.2 mg/dL (0.2-1.0)
== END 2018-11-13 16:05 | disposition home or self-care (01) ==
LOC: ERS 12:20
DX: N60.11 Diffuse cystic mastopathy of right breast (principal); E11.65 Type 2 diabetes mellitus with hyperglycemia; D64.4 Congenital dyserythropoietic anemia; F32.9 Major depressive disorder, single episode, unspecified; F17.210 Nicotine dependence, cigarettes, uncomplicated
CPT/HCPCS: 36416; 80053; 81003; 82010; 83735; 85025; 96360; 96361

== ENCOUNTER 2019-01-17 14:30 | Outpatient (CLI) | payer OTHER ==
--- NOTE | 2019-01-17 15:29 | MMO ---
Bilateral MAMMO Bilat Diag DDI+MEL. CLINICAL HISTORY: Patient is 33 years old and is seen for diagnostic exam,non-bloody discharge in the right breast and pain in the central region of both breasts. The patient has no family history of breast cancer. The patient has no personal history of cancer. VIEWS: The views performed were: bilateral craniocaudal with tomosynthesis; bilateral mediolateral oblique with tomosynthesis; and bilateral mediolateral with tomosynthesis. FILMS COMPARED: The present examination has been compared to a prior imaging study performed at [facility] on 01/17/2019. MAMMOGRAM FINDINGS: There are no suspicious masses, suspicious calcifications, or new areas of architectural distortion. There are no mammographic or sonographic abnormalities to explain the patient's breast pain. The patient is referred back to her clinician. Negative imaging findings should not preclude biopsy if clinical findings are suspicious. IMPRESSION: THERE ARE NO MAMMOGRAPHIC OR SONOGRAPHIC ABNORMALITIES TO EXPLAIN THE PATIENT'S BREAST PAIN. THE PATIENT IS REFERRED BACK TO HER CLINICIAN. NEGATIVE IMAGING FINDINGS SHOULD NOT PRECLUDE BIOPSY IF CLINICAL FINDINGS ARE SUSPICIOUS. THE RESULTS OF THIS EXAM WERE SENT TO THE PATIENT. ACR BI-RADS Category 1 - Negative MAMMOGRAPHY NOTE: 1. A negative mammogram report should not delay a biopsy if a dominant of clinically suspicious mass is present. 2. Approximately 10% to 15% of breast cancers are not detected by mammography. 3. Adenosis and dense breasts may obscure an underlying neoplasm.
--- NOTE | 2019-01-17 16:05 | ULT ---
COMPLETE LEFT BREAST ULTRASOUND: DATE: 01/17/2019. PROVIDED CLINICAL HISTORY: Pain FINDINGS: Sonographic interrogation was performed of the left breast in the regions of patient pain from the 12 to 11 o'clock positions. An intramammary lymph node is seen at the 2 o'clock position. No concerni ng findings are evident. IMPRESSION: BIRADS category 1 - negative. No mammographic or sonographic abnormalities are present to explain th e patient's breast pain. The patient is referred back to her clinician. Negative imaging findings s hould not preclude further evaluation of a clinically suspicious finding. POS: [facility]
--- NOTE | 2019-01-17 16:20 | ULT ---
RIGHT BREAST ULTRASOUND COMPLETE: Date: 01-17-19 Provided Clinical History: Breast pain. FINDINGS: Sonographic evaluation of the right breast was performed in the regions of patient's pain from the 12 to 11 o'clock positions. The sonographic appearance of the interrogated breast parenchyma is normal. IMPRESSION: BIRADS category 1 - negative. Negative imaging findings should not preclude further evaluation of a c linically suspicious finding. The patient was referred back to clinician. POS: [facility]
== END 2019-01-17 14:31 | disposition home or self-care (01) ==
LOC: BICMAMMO 14:30
PROVIDERS: ATTEND Family Medicine
DX: N64.4 Mastodynia (principal)
CPT/HCPCS: 77066; G0279

== ENCOUNTER 2019-02-20 10:43 | Emergency (ER) | payer OTHER ==
--- NOTE | 2019-02-20 11:35 | RAD ---
THREE VIEWS LEFT INDEX FINGER: HISTORY: Left index finger swelling after injury during boxing 1 week ago. FINDINGS: There is no evidence of a fracture, dislocation, or other osseous abnormality involving the left inde x finger. IMPRESSION: No acute osseous abnormality. POS: [facility]
== END 2019-02-20 14:02 | disposition home or self-care (01) ==
LOC: ERS 10:43
DX: L03.012 Cellulitis of left finger (principal); E11.9 Type 2 diabetes mellitus without complications; F32.9 Major depressive disorder, single episode, unspecified; Z79.4 Long term (current) use of insulin; Z79.899 Other long term (current) drug therapy

== ENCOUNTER 2019-06-01 15:43 | Emergency (ER) | payer OTHER | END 2019-06-01 16:25 | disposition left against medical advice (07) | LOC: ERS 15:43 | DX: Z53.21 Procedure and treatment not carried out due to patient leaving prior to being seen by health care provider (principal) ==

== ENCOUNTER 2019-06-21 22:15 | Emergency (ER) | payer OTHER | END 2019-06-21 23:35 | disposition home or self-care (01) | LOC: ERS 22:15 | DX: L60.0 Ingrowing nail (principal); E11.9 Type 2 diabetes mellitus without complications; F32.9 Major depressive disorder, single episode, unspecified; Z79.899 Other long term (current) drug therapy; Z79.4 Long term (current) use of insulin | CPT/HCPCS: 99283 ==

== ENCOUNTER 2019-06-30 08:14 | Outpatient (CLI) | payer OTHER ==
--- NOTE | 2019-06-30 13:01 | NM ---
RADIONUCLIDE GASTRIC EMPTYING SCAN: HISTORY: Gastroparesis RADIOPHARMACEUTICAL: 2 mCi technetium 99m sulfur colloid administered orally in scrambled eggs. FINDINGS: Gastric emptying at different times is as follows: 1 hour: 100%% The calculated gastric emptying half-time [id number]. IMPRESSION: Rapid gastric emptying
== END 2019-06-30 08:15 | disposition home or self-care (01) ==
LOC: NM 08:14
PROVIDERS: ATTEND Student in an Organized Health Care Education/Training Program
DX: K31.84 Gastroparesis (principal)
CPT/HCPCS: 78264; A9541

== ENCOUNTER 2019-11-28 03:14 | Inpatient (IN) | payer OTHER ==
[2019-11-28] MEDS ORDERED: Ondansetron PF 4 MG/2 ML Vial ONE (03:34)
[2019-11-28] MEDS ORDERED: Ketorolac Tromethamine 30 MG/ML VIAL ONE (03:34)
[2019-11-28 03:49] LABS: Bacteria/HPF 2+ HPF (None Seen); Bilirubin Negative (Negative); Blood, Urine 2+ (Negative); Clarity Extra Turbid (Clear); Glucose, Urine (Dipstick) Greater than 1000 mg/dL (Negative); Leukocyte 500 Leu/uL (Negative); Nitrite 2+ (Negative); Protein, Urine (Dipstick) 100 mg/dL (Neg-Trace); RBC/HPF Greater than 50 HPF (0-3); Squamous Epithelial None Seen HPF (0-3); Urobilinogen Normal mg/dL (Less than 2); WBC/HPF Greater than 50 HPF (0-3)
[2019-11-28 04:03] LABS: #Eosinphils 0.1 thou/uL (0.0-0.7); #Lymphocytes 2.3 thou/uL (1.20-3.40); #Monocytes 0.6 thou/uL (0.11-0.59); #Neutrophils 11.2 thou/uL (1.40-6.50); %Basophils 0.3 % (0.0-1.0); %Eosinophils 0.4 % (0.0-10.0); %Lymphocytes 16.1 % (21.0-51.0); %Monocytes 4.5 % (0.0-10.0); %Neutrophils 78.6 % (42.0-75.0); Hemoglobin 14.8 g/dL (12.0-16.0); Mean Corpuscular HGB CONC 34.1 g/dL (32.0-36.0); Mean Corpuscular Volume 79.3 fL (78.0-98.0); Mean Platelet Volume 10.2 fL (7.4-10.4); Platelet Count 222 thou/uL (130-400); RBC Distribution Width 12.7 % (11.5-14.5); Red Blood Cell (RBC) Count 5.46 mill/uL (4.20-5.40); White Blood Cell (WBC) Count 14.2 thou/uL (4.8-10.8)
[2019-11-28] MEDS ORDERED: cefTRIAXone\\ROCEPHIN 1 GM VIAL ONE (04:09)
[2019-11-28 04:13] LABS: BHCG - Serum Negative (NEGATIVE); Pregs Control Background? CLEAR/WHITE (CLR/WHITE); Pregs Control Bar Appear? YES (CONTROL BAR)
[2019-11-28 04:25] LABS: ALT (SGPT) 15 U/L (8-55); AST (SGOT) 12 U/L (5-34); Albumin 3.9 g/dL (3.5-5.0); Alkaline Phosphatase 108 U/L (40-110); Anion Gap 14 mmol/L (10-20); BUN (Urea Nitrogen) 13 mg/dL (7.0-18.7); Bilirubin, Total 0.4 mg/dL (0.2-1.2); Calc. Creatinine Clearance 0 mL/min (70-130); Calcium 9.6 mg/dL (7.8-10.44); Carbon Dioxide 22 mmol/L (22-29); Chloride 100 mmol/L (98-107); Estimated GFR-MDRD 74; Globulin 3.6 g/dL (2.4-3.5); Glucose 368 mg/dL (70-105); Protein, Total 7.5 g/dL (6.0-8.3); Sodium 132 mmol/L (136-145)
--- NOTE | 2019-11-28 05:08 | PDOC.FPRHP ---
- History of Present Illness Chief Complaint: R-subrapubic/flank pain History of Present Illness: 34F with PMHx of Hx of Hypothyroidism not on medication, RLS, abnormal uterine bleeding with nexplanon, IDDM2, gastroparesis, and recent UTI diagnosed in clinic on 11/16 and treated with macrobid 100mg BID x 7 days presents to the ED with cc of R-sided suprpubic and flank pain. Patient was seen at [facility] on 11/16 and was diagnosed with a UTI at that time. She was prescribed with macrobid 100mg BID x 7 days, of which she reported that she finished the course. Urine culture obtained on 11/16 in clinic demonstrated e coli resistant to ampicillin but was otherwise sensitive. IDDM2: on 60u toujeo qhs. Reports fasting BG is usually in the 300s. Takes her BG 1x/day in the morning fasting. She reports that the pain she is experiencing today has been on-going since her original diagnosis in clinic and she presents to the ED today because she "couldn't take it anymore." She endorses urinary frequency and "pressure" in her lower abdomen but no dysuria or urinary hesitancy. She also endorses daily n/v, and has hx of gastroparesis that is followed by GI , does not know name. Reports hx of hypothyroidism that she is no longer taking medication for. Reports hx of abnormal uterine bleeding since nexplanon insertion 1 year ago. ED Course: 1g rocephin, 2L NS, 4mg zofran, 15mg toradol - Allergies/Adverse Reactions Allergies Allergy/AdvReac Type Severity Reaction Status Date / Time diphenhydramine Allergy Verified 10/01/19 15:41 [From Benadryl] - Home Medications Medication Instructions Recorded Confirmed Type Acetaminophen [Tylenol Regular 650 mg PO Q4H PRN tab 05/29/17 11/28/19 Rx Strength] Ibuprofen [Motrin] 600 mg PO Q6H PRN tab 05/29/17 11/28/19 Rx Gabapentin 300 mg PO DAILY 11/28/19 11/28/19 History Gatifloxacin [Gatifloxacin 0.5% 1 drop R EYE QID 11/28/19 11/28/19 History Sulma Crane] Insulin Glargine,Hum.Rec.Anlog 60 unit SQ QPM 11/28/19 11/28/19 History [Huey Walton Solostar] medroxyPROGESTERone Acetate 1 tab PO ASDIR 11/28/19 11/28/19 History [Medroxyprogesterone Acetate] prednisoLONE Acetate [Econopred 1 drop R EYE ASDIR 11/28/19 11/28/19 History Plus 1% Opth Susp] - History PMHx: Abnormal uterine bleeding with nexplanon, IDDM2, gastroparesis, hypothyroidism, RLS PSHx: Cholecystectomy, C/S x3, BTL FHx: Father - DM Social: Smokes 1-2 cig/q3wks, occasional alcohol, no drug use - Review of Systems General: reports: weight/appetite/sleep changes (decreased appetite). denies: fever/chills Eyes: reports: other (recent diagnosis of R eye uveitis, reports blurry vision) ENT: denies: nasal congestion, rhinorrhea Respiratory: denies: cough, congestion Cardiovascular: denies: chest pain, edema Gastrointestinal: reports: nausea, vomiting, abdominal pain Genitourinary: reports: polyuria. denies: dysuria Skin: denies: rashes, lesions Musculoskeletal: denies: stiffness, swelling Neurological: denies: syncope, seizure Psychological: denies: anxiety, depression - Vital signs BP: [135/97] HR: [88] RR: [14] Tmax: [98.5F] Pox: [100]% on [RA] Wt: [75.3kg] - Physical Exam Constitutional: NAD, awake, alert and oriented HEENT: normocephalic and atraumatic, EOMI Neck: supple, FROM Chest: no-tender to palpation, no lesions Heart: RRR, normal S1/S2 Lungs: CTAB, no respiratory distress Abdomen: soft, bowel sounds present, other (suprapubic ttp) Musculoskeletal: normal tone, other (CVA tenderness to palpation on R) Neurological: no focal deficit, CN II-XII intact Skin: no rash/lesions, good turgor Heme/Lymphatic: no purpura, other (abnormal uterine bleeding) Psychiatric: normal mood and affect, good judgment and insight FMR H&P: Results - Labs Result Diagrams: 11/28/19 03:50 11/28/19 03:50 Lab results: WBC 14.2 thou/uL (4.8-10.8) H 11/28/19 03:50 Hgb 14.8 g/dL (12.0-16.0) 11/28/19 03:50 Hct 43.3 % (36.0-47.0) 11/28/19 03:50 MCV 79.3 fL (78.0-98.0) 11/28/19 03:50 Plt Count 222 thou/uL (130-400) 11/28/19 03:50 Neutrophils % 78.6 % (42.0-75.0) H 11/28/19 03:50 Sodium 132 mmol/L (136-145) L 11/28/19 03:50 Potassium 4.0 mmol/L (3.5-5.1) 11/28/19 03:50 Chloride 100 mmol/L (98-107) 11/28/19 03:50 Carbon Dioxide 22 mmol/L (22-29) 11/28/19 03:50 BUN 13 mg/dL (7.0-18.7) 11/28/19 03:50 Creatinine 0.87 mg/dL (0.6-1.1) 11/28/19 03:50 Glucose 368 mg/dL (70-105) H 11/28/19 03:50 Calcium 9.6 mg/dL (7.8-10.44) 11/28/19 03:50 Total Bilirubin 0.4 mg/dL (0.2-1.2) 11/28/19 03:50 AST 12 U/L (5-34) 11/28/19 03:50 ALT 15 U/L (8-55) 11/28/19 03:50 Alkaline Phosphatase 108 U/L (40-110) 11/28/19 03:50 Serum Total Protein 7.5 g/dL (6.0-8.3) 11/28/19 03:50 Albumin 3.9 g/dL (3.5-5.0) 11/28/19 03:50 Urine Ketones Negative mg/dL (Negative) 11/28/19 03:20 Urine Blood 2+ (Negative) A 11/28/19 03:20 Urine Nitrite 2+ (Negative) A 11/28/19 03:20 Ur Leukocyte Esterase 500 Saul/uL (Negative) A 11/28/19 03:20 Urine RBC Greater than 50 HPF (0-3) A 11/28/19 03:20 Urine WBC Greater than 50 HPF (0-3) A 11/28/19 03:20 Ur Squamous Epith Cells None Seen HPF (0-3) 11/28/19 03:20 Urine Bacteria 2+ HPF (None Seen) A 11/28/19 03:20 - Radiology Interpretation CT scan - abdomen Status: report reviewed by me (evidence of cystitis (bladder wall thickening), concerning extension of the infection into the upper collecting system) FMR H&P: A/P - Problem List (1) Sepsis Current Visit: Yes Status: Acute Code(s): A41.9 - SEPSIS, UNSPECIFIED ORGANISM (2) Pyelonephritis Current Visit: Yes Status: Acute Code(s): N12 - TUBULO-INTERSTITIAL NEPHRITIS, NOT SPCF ACUTE OR CHRONIC (3) Insulin dependent diabetes mellitus Current Visit: Yes Status: Acute Code(s): [id number] - (4) Gastroparesis Current Visit: Yes Status: Acute Code(s): K31.84 - GASTROPARESIS (5) Hypothyroidism Current Visit: Yes Status: Acute Code(s): E03.9 - HYPOTHYROIDISM, UNSPECIFIED (6) Hyperglycemia Current Visit: No Status: Acute Code(s): R73.9 - HYPERGLYCEMIA, UNSPECIFIED (7) Hyponatremia Current Visit: No Status: Acute Code(s): E87.1 - HYPO-OSMOLALITY AND HYPONATREMIA (8) Abnormal uterine bleeding Current Visit: Yes Status: Acute Code(s): N93.9 - ABNORMAL UTERINE AND VAGINAL BLEEDING, UNSPECIFIED (9) Restless leg syndrome Current Visit: Yes Status: Acute - Plan 34F with PMHx of Hx of Hypothyroidism not on medication, RLS, abnormal uterine bleeding with nexplanon, IDDM2, gastroparesis, and recent UTI diagnosed in clinic on 11/16 and treated with macrobid 100mg BID x 7 days that is admitted for sepsis 2/2 pyelonephritis #Sepsis 2/2 pyelonephritis -WBC 14.2, pulse of 97 on admission with source of infection c/w sepsis -failed macrobid BID x 7days outpatient -outpatient urine culture demonstrated e coli only resistant to ampicillin -UA today: +LE, 2+ nitrites, 100 protein, 1000 glucose, 2+ blood, 750 WBC, 2+ bacteria -no hx of renal/ureter abnormalities, no hx of frequent UTIs -CT: thickened bladder wall suggestive of cystitis with thickening of the ureter suggestive of infection transitioning toward the upper collecting system -CVA tenderness on the R -urine culture pending, will follow and alter abx accordingly -started on rocephin the ED, continue -received 2L NS in ED, VSS, continue LR -zofran for n/v -tylenol and toradol for pain #Hyponatremia -sodium 132 -continue to monitor with morning BMP #Elevated BP without the diagnosis of HTN -had elevated BP in the ED -will continue to monitor and consider starting CHERIE-I for kidney protection with hx of diabetes #IDDM2 -BG regularly in the 300s fasting per patient -continue home toujeo 60u qhs, consider titrating up -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 consult -moderate ISS -ACHS accuchecks #Hx of Hypothyroidism -patient states she was taken off of levothyroxine -TSH pending #Gastroparesis -n/v not worse from baseline per patient -followed by GI, stable #Abnormal uterine bleeding -has had abnormal uterine bleeding since nexplanon insertion one year ago -has tried provera and OCPs outpatient -encouraged patient to f/u in clinic and to consider removal of nexplanon #Restless leg syndrome -continue home gabapentin Diet: CC DVT ppx: SCDs Dispo: medical inpatient for sepsis 2/2 pyelonephritis failed outpatient tx; urine culture pending Code: Full PCP: Mario FMCatherine H&P: Upper Level - Pertinent history 34 year old female recently treated for UTI with macrobid BID x7 days with persistent symptoms of frequency, suprapubic pressure, and suprapubic pain. Patient denies dysuria or hesitancy. This is patient's first UTI. She states the symptoms never completely resolved on antibiotics. Patient states that her BG has also been uncontrolled. She states that she has been on different regimens but is more recently on toujeo 60 units at night. She is on no other diabetes medications. She states she does have a history of yeast infection for nearly a year on and off. She denies any recent vaginal discharge or discomfort. Patient has N/V secondary to gastroperesis. She follows with GI. Patient denies any flank pain currently or blood in urine. - Pertinent findings General: A&O x3, no acute distress HEENT: MMM Card: RRR, no murmur Resp: CTA bilaterally, no acute respiratory distress Abd: TTP in suprapubic region. Right CVA tenderness Ext: No cyanosis or edema - Plan Date/Time: 11/28/19 0503 I, Ivonne Beatty, have evaluated this patient and agree with findings/plan as outlined by investigator internal revenue resident. Pertinent changes/additions are listed here. Sepsis 2/2 pyelonephritis - Tachycardic with elevated WBC - Tachycardia has resolved with fluids - Failed outpatient treatment of UTI with macrobid x7 days - N/V 2/2 gastroperesis making continued outpatient antibiotics difficult - Rocephin 1g q24h - Urine culture pending - No blood cultures at this time; patient clinically well and antibiotics have already been given - Urine culture collected 5/ E. coli sensitive to macrobid - Strict I&O's Type II DM, uncontrolled - On toujeo 60 units at night with BG in AM 300's consistently - No checking BG during day and not on short acting insulin - ACHS accuchecks; mild SSI and plan to start on mealtime insulin during hospitalization to optimize BG Elevated BP without diagnosis of HTN - Monitor - Consider starting BP medication during hospitalization Hypothyroidism - Not on medication - Will check TSH Gastroparesis - Follows with GI - Zofran or reglan PRN DVT PPX: SCD's Code Status: Full Dispo: Admit to medical. Anticipate LOS >48 hours. Addendum - Attending - Attending Attestation Date/Time: 11/28/19 1326 I personally evaluated the patient and discussed the management with Dr. Luna I agree with the History, Examination, Assessment and Plan documented above with any addition or exceptions noted below. 34 yo F being treated for sepsis pyelonephritis and ureteritis. She completed a 7 day course of macrobid and has persistent symptoms. Treating with rocephin and azithromycin. GC/CT pending. Ucx pending. Titrating up on her insulin. RA Degroot
[2019-11-28] MEDS ORDERED: Ondansetron PF 4 MG/2 ML Vial IVP PRN ×2 (06:36→06:37)
[2019-11-28] MEDS ORDERED: Dextrose 50% Abboject 50 ML SYRINGE SLOW IVP PRN (06:36)
[2019-11-28] MEDS ORDERED: Calcium Carbonate 500 MG ChewTAB PO PRN (06:36)
[2019-11-28] MEDS ORDERED: HumaLOG 300 UNITS/3 ML VIAL SC PRN (06:36)
[2019-11-28] MEDS ORDERED: Dextrose 5% in Water 1,000 ML IV PRN (06:36)
[2019-11-28] MEDS ORDERED: Ondansetron ODT 4 MG TAB SL PRN (06:37)
[2019-11-28 06:44] VITALS: BMI 33.2
--- NOTE | 2019-11-28 08:05 | CT ---
PRELIMINARY REPORT/[facility]/EMERGENCY AFTER HOURS PROCEDURE: Abdominal and pelvic CT with IV contrast Technique: IV contrast enhanced axial CT images were obtained through the abdomen and pelvis. Multi planar reformatted images were provided. History: Right-sided pain. Recent UTI Comparison: 01/23/18 Findings: No acute basilar lung abnormality noted. The liver and spleen are unremarkable. The pancr eas appears normal. The adrenal glands are unremarkable. Cholecystectomy changes noted. The appendix appears normal. The left kidney is unremarkable. There is mild right-sided hydronephrosis with hydroureter. Subtle right-sided periureteral fat stranding and urothelial enhancement noted. There is circumferential thickening of the bladder with indistinct perivesical fat. No acute bowel a bnormality noted. Bowel loops are unremarkable. There is no free fluid. The abdominal aorta is non-aneurysmal. Visualized osseous structures are unremarkable for patient's age. Impression: Abnormal bladder wall thickening suggesting cystitis. Correlation with urinalysis recomm ended. There is also mild right-sided hydronephrosis and hydroureter likely related to compression of the right UVJ due to bladder wall edema. There is subtle urothelial enhancement within the right ureter and adjacent periureteral fat stranding raising concern for extension of infection into the upper collecting system. There are no areas of diminished renal enhancement at this time to suggest pyelonephritis however clinical correlation and follow-up is advised. ELECTRONICALLY SIGNED BY: Carrington Chapman MD November 28, 2019 4:45:55 AM CDT FINAL REPORT EMERGENCY AFTER HOURS STUDY CT ABDOMEN WITH CONTRAST CT PELVIS WITH CONTRAST: DATE: 11/28/2019. HISTORY: 34-year-old female with right suprapubic and right flank pain with nausea, vomiting, and hematuria. COMPARISON: 01/23/2018. TECHNIQUE: IV injection of iodinated contrast media: administered. Oral contrast media:Not administered. FINDINGS: Mural enhancement and mural thickening of urinary bladder and entire right ureter. Mild right hydrone phrosis. No evidence of pyelonephritis yet. Agreement with preliminary report by [facility]. IMPRESSION: Acute cystitis complicated by ascending right tract infection causing right ureteritis and mild ob struction with mild right hydronephrosis. Transcribed Date/Time: 11/28/2019 8:23 AM
[2019-11-28] MEDS: Ketorolac Tromethamine 30 MG/ML VIAL IVP PRN ×2 (08:30→22:44)
[2019-11-28] MEDS: Lactated Ringer's 1,000 ML IV SCH ×3 (08:31→23:57)
[2019-11-28] MEDS ORDERED: Iopamidol 370 76% 100 ML VIAL ONE (09:44)
[2019-11-28] MEDS ORDERED: Azithromycin 250 MG TAB PO SCH (09:45)
[2019-11-28] MEDS: HumaLOG 300 UNITS/3 ML VIAL SC PRN (12:22)
[2019-11-28 12:54] LABS: Lactic Acid 1.5 mmol/L (0.5-2.2)
[2019-11-28] MEDS ORDERED: prednisoLONE 1% Ophth Susp 5 ml Bottle R EYE SCH (13:45)
[2019-11-28] MEDS: Acetaminophen 325 MG TAB PO PRN (14:06)
[2019-11-28] MEDS ORDERED: cefTRIAXone\\ROCEPHIN 1 GM in Sodium Chloride 0.9% 100 ML IVPB SCH (16:00)
[2019-11-28] MEDS: Ciprofloxacin 0.3% Ophth Drops 2.5 ml Bottle R EYE SCH ×2 (17:48→22:39)
[2019-11-28] MEDS ORDERED: Insulin Glargine 48 UNITS in Pre-Filled Syringe 1 EACH SC SCH (21:00)
[2019-11-28 21:26] LABS: Free T4 (Free Thyroxine) 0.79 ng/dL (0.70-1.48)
[2019-11-28] MEDS: Gabapentin 300 MG CAP PO SCH (22:38)
[2019-11-28] MEDS: PRE FILLED SC SCH (22:40)
[2019-11-28] MEDS: INSULIN GLARGINE SC SCH (22:40)
[2019-11-29] MEDS: cefTRIAXone\\ROCEPHIN 1 GM in Sodium Chloride 0.9% 100 ML IVPB SCH (05:04)
[2019-11-29] MEDS: HumaLOG 300 UNITS/3 ML VIAL SC PRN ×2 (05:06→17:56)
--- NOTE | 2019-11-29 07:02 | PDOC.FM ---
- Subjective Subjective: Patient was resting comfortably in bed at the time of evaluation, and denied any acute overnight events. - Objective Vital Signs & Weight: Vital Signs (12 hours) Temp Pulse Resp BP Pulse Ox 11/29/19 00:01 98.1 F 84 18 117/78 98 11/28/19 20:00 98.1 F 77 18 121/79 98 Weight Weight 77.139 kg I&O: 11/28/19 11/29/19 11/30/19 06:59 06:59 06:59 Intake Total 1600 Balance 1600 Result Diagrams: 11/29/19 06:36 11/29/19 06:36 Phys Exam - Physical Examination Constitutional: NAD HEENT: PERRLA, moist MMs, sclera anicteric, oral pharynx no lesions Neck: no nodes, supple, full ROM Respiratory: no wheezing, no rales, no rhonchi, clear to auscultation bilateral Cardiovascular: RRR, no significant murmur, no rub Gastrointestinal: soft, no distention, positive bowel sounds Mild suprapubic TTP Musculoskeletal: no edema, pulses present Moderate CVA TTP (Right) Neurological: non-focal, moves all 4 limbs Lymphatic: no nodes Psychiatric: normal affect Dx/Plan (1) Abnormal uterine bleeding Code(s): N93.9 - ABNORMAL UTERINE AND VAGINAL BLEEDING, UNSPECIFIED Status: Acute (2) Gastroparesis Code(s): K31.84 - GASTROPARESIS Status: Acute (3) Hypothyroidism Code(s): E03.9 - HYPOTHYROIDISM, UNSPECIFIED Status: Acute (4) Insulin dependent diabetes mellitus Code(s): [id number] - Status: Acute (5) Pyelonephritis Code(s): N12 - TUBULO-INTERSTITIAL NEPHRITIS, NOT SPCF ACUTE OR CHRONIC Status: Acute (6) Sepsis Code(s): A41.9 - SEPSIS, UNSPECIFIED ORGANISM Status: Acute (7) Hyperglycemia Code(s): R73.9 - HYPERGLYCEMIA, UNSPECIFIED Status: Acute - Plan Plan: Patient is a 34 y/o female with PMH of IDDM2 and a recent UTI diagnosed in clinic on 11/16 and treated with Macrobid 100mg BID x 7D that was admitted for Sepsis 2/2 Pyelonephritis. 1. Sepsis 2/2 Pyelonephritis -WBC 14.2, pulse of 97 on admission with probably source of infection - c/w Sepsis -Likely failed outpatient treatment w/ Macrobid -UCx (Outpatient): E. coli resistant to Ampicillin -UA (11/27): +LE, 2+ Nitrites, 100 Protein, 1000 Glucose, 2+ Blood, 750 WBCs, 2+ Bacteria -UCx: Pending -CT: Cystitis, Ureteritis (R) with ascension toward the upper collecting system -No hx of Renal/Ureter abnormalities -Severe CVA tenderness (R) during physical exam -Started on Ceftriaxone in ED - will continue @ 1 g Q24H -s/p Azithromycin 1 teresa 11/27 for suspected GC/CT -s/p 2L NS in ED - will transition to LR -Zofran for N/V -Tylenol and Toradol for fever/pain 2. Hyponatremia -Na: 132 on admission -Will continue to trend with AM Labs 3. Elevated BP w/o Diagnosis of HTN -Documented HTN in the ED, with subsequent BPs at goal -Will continue to monitor and consider starting CHERIE-I for renal protection, Hx of DM 4. IDDM2 -Per patient, fasting BGs typically in the 300s -Continue home Toujeo 60u (or equivalent) QAM, will titrate up as needed -Will initiate Pre-Prandial Insulin 4u ACHS -Moderate ISS -ACHS Accuchecks -Dietary Consult: Pending 5. Hx of Hypothyroidism -Patient states she was taken off of Levothyroxine by PCP -TSH: 5.03 -Free T3: 2.17 -Free T4: 0.79 -Likely sub-clinical - will continue to monitor for development of symptoms 6. Gastroparesis -Likely 2/2 to #4 -Per patient, N/V currently at baseline -Followed by GI as an outpatient, stable 7. Abnormal Uterine Bleeding -Has had AUB since Nexplanon insertion ~1Y prior -Has tried Provera and OCPs as an outpatient -Encouraged patient to f/u in clinic and to consider removal of Nexplanon 8. Restless Leg Syndrome -Will continue home Gabapentin regimen PCP: MACARENA Florentino Code: Full Diet: CC DVT PPx: SCDs Dispo: Patient is currently stable and admitted to the Medical Floor for Sepsis 2/2 Pyelonephritis w/ failed outpatient treatment. Will continue ABx and fluid resuscitation as per above and await UCx and serologies. Continue to monitor ACHS Accuchecks and titrate DM medication regimen in order to achieve target BG of 140-180. Expected LOS > 48H. Addendum - Attending - Attending Attestation Date/Time: 11/29/19 2163 I personally evaluated the patient and discussed the management with Dr. Laird I agree with the History, Examination, Assessment and Plan documented above with any addition or exceptions noted below. 34 yo F admitted for treatment of ureteritis. Ucx shows e. coli, sensitivities pending. Continue rocephin, s/p 1g azithro. GC/CT pending. Titrating up on insulin regimen. Follow up on thyroid function studies outpatient. RA Degroot
[2019-11-29 07:13] LABS: #Basophils 0.1 thou/uL (0.0-0.2); #Eosinphils 0.1 thou/uL (0.0-0.7); #Monocytes 0.5 thou/uL (0.11-0.59); #Neutrophils 4.8 thou/uL (1.40-6.50); %Lymphocytes 35.3 % (21.0-51.0); %Monocytes 5.7 % (0.0-10.0); %Neutrophils 56.9 % (42.0-75.0); Hemoglobin 12.5 g/dL (12.0-16.0); Mean Corpuscular HGB CONC 32.8 g/dL (32.0-36.0); Mean Corpuscular Hemoglobin 26.5 pg (27.0-31.0); Mean Corpuscular Volume 80.8 fL (78.0-98.0); Mean Platelet Volume 9.5 fL (7.4-10.4); Platelet Count 185 thou/uL (130-400); RBC Distribution Width 12.6 % (11.5-14.5); Red Blood Cell (RBC) Count 4.71 mill/uL (4.20-5.40); White Blood Cell (WBC) Count 8.4 thou/uL (4.8-10.8)
[2019-11-29 07:31] LABS: Anion Gap 11 mmol/L (10-20); BUN (Urea Nitrogen) 10 mg/dL (7.0-18.7); Calc. Creatinine Clearance 147 mL/min (70-130); Calcium 8.3 mg/dL (7.8-10.44); Carbon Dioxide 24 mmol/L (22-29); Chloride 106 mmol/L (98-107); Estimated GFR-MDRD Greater than 90; Glucose 167 mg/dL (70-105); Potassium 3.8 mmol/L (3.5-5.1); Sodium 137 mmol/L (136-145)
[2019-11-29] MEDS: Lactated Ringer's 1,000 ML IV SCH ×3 (09:09→23:53)
[2019-11-29] MEDS: Ciprofloxacin 0.3% Ophth Drops 2.5 ml Bottle R EYE SCH ×4 (09:10→22:29)
[2019-11-29] MEDS: Insulin Regular 300 UNITS/3 ML VIAL SC SCH ×3 (11:32→22:28)
[2019-11-29] MEDS: Acetaminophen 325 MG TAB PO PRN (11:32)
[2019-11-29] MEDS: Ketorolac Tromethamine 30 MG/ML VIAL IVP PRN (18:02)
[2019-11-29] MEDS: Gabapentin 300 MG CAP PO SCH (22:27)
[2019-11-29] MEDS: PRE FILLED SC SCH (22:27)
[2019-11-29] MEDS: INSULIN GLARGINE SC SCH (22:27)
[2019-11-30] MEDS: Lactated Ringer's 1,000 ML IV SCH ×2 (01:44→11:44)
[2019-11-30] MEDS: cefTRIAXone\\ROCEPHIN 1 GM in Sodium Chloride 0.9% 100 ML IVPB SCH (05:29)
[2019-11-30 06:33] LABS: #Basophils 0.1 thou/uL (0.0-0.2); #Eosinphils 0.2 thou/uL (0.0-0.7); #Lymphocytes 3.4 thou/uL (1.20-3.40); #Monocytes 0.4 thou/uL (0.11-0.59); %Basophils 1.1 % (0.0-1.0); %Eosinophils 2.1 % (0.0-10.0); %Lymphocytes 41.8 % (21.0-51.0); %Monocytes 5.5 % (0.0-10.0); %Neutrophils 49.5 % (42.0-75.0); Mean Corpuscular HGB CONC 32.8 g/dL (32.0-36.0); Mean Corpuscular Hemoglobin 26.5 pg (27.0-31.0); Mean Corpuscular Volume 80.8 fL (78.0-98.0); Mean Platelet Volume 9.8 fL (7.4-10.4); Platelet Count 223 thou/uL (130-400); RBC Distribution Width 12.8 % (11.5-14.5); Red Blood Cell (RBC) Count 4.89 mill/uL (4.20-5.40)
[2019-11-30 07:00] LABS: Anion Gap 13 mmol/L (10-20); BUN (Urea Nitrogen) 11 mg/dL (7.0-18.7); Calc. Creatinine Clearance 162 mL/min (70-130); Calcium 8.9 mg/dL (7.8-10.44); Carbon Dioxide 23 mmol/L (22-29); Chloride 106 mmol/L (98-107); Estimated GFR-MDRD Greater than 90; Glucose 109 mg/dL (70-105); Potassium 3.7 mmol/L (3.5-5.1); Sodium 138 mmol/L (136-145)
--- NOTE | 2019-11-30 07:27 | PDOC.FM ---
- Subjective Subjective: Patient was resting comfortably in bed at the time of evaluation. She denied any acute overnight events such as fever, chills, N/V, diaphoresis or pre- syncope, although she did endorse mild chest discomfort that she referred to as "heart burn." Patient stated that she had been given Pepcid by the nursing staff. - Objective Vital Signs & Weight: Vital Signs (12 hours) Temp Pulse Resp BP Pulse Ox 11/29/19 20:00 98 11/29/19 19:45 98.2 F 81 18 115/78 98 Weight Weight 77.139 kg I&O: 11/29/19 11/30/19 12/01/19 06:59 06:59 06:59 Intake Total 1600 Balance 1600 Result Diagrams: 11/30/19 05:51 11/30/19 05:51 Phys Exam - Physical Examination Constitutional: NAD HEENT: PERRLA, moist MMs, sclera anicteric, oral pharynx no lesions Neck: no nodes, no JVD, supple, full ROM Respiratory: no wheezing, no rales, no rhonchi, clear to auscultation bilateral Cardiovascular: RRR, no significant murmur, no rub Gastrointestinal: soft, non-tender, no distention, positive bowel sounds Musculoskeletal: no edema, pulses present Right CVA Tenderness Neurological: non-focal, moves all 4 limbs Lymphatic: no nodes Psychiatric: normal affect, A&O x 3 Skin: no rash Dx/Plan (1) Abnormal uterine bleeding Code(s): N93.9 - ABNORMAL UTERINE AND VAGINAL BLEEDING, UNSPECIFIED Status: Acute (2) Gastroparesis Code(s): K31.84 - GASTROPARESIS Status: Acute (3) Hypothyroidism Code(s): E03.9 - HYPOTHYROIDISM, UNSPECIFIED Status: Acute (4) Insulin dependent diabetes mellitus Code(s): [id number] - Status: Acute (5) Pyelonephritis Code(s): N12 - TUBULO-INTERSTITIAL NEPHRITIS, NOT SPCF ACUTE OR CHRONIC Status: Acute (6) Sepsis Code(s): A41.9 - SEPSIS, UNSPECIFIED ORGANISM Status: Acute (7) Hyperglycemia Code(s): R73.9 - HYPERGLYCEMIA, UNSPECIFIED Status: Acute - Plan Plan: Patient is a 34 y/o female with PMH of IDDM2 and a recent UTI diagnosed in clinic on 11/16 and treated with Macrobid 100mg BID x 7D that was admitted for Sepsis 2/2 Pyelonephritis. 1. Sepsis 2/2 Pyelonephritis -WBC 14.2, pulse of 97 on admission with probably source of infection - c/w Sepsis -Likely failed outpatient treatment w/ Macrobid -UCx (Outpatient): E. coli resistant to Ampicillin -UA (11/27): +LE, 2+ Nitrites, 100 Protein, 1000 Glucose, 2+ Blood, 750 WBCs, 2+ Bacteria -UCx: Ecoli, resistant to Ampicillin -CT: Cystitis, Ureteritis (R) with ascension toward the upper collecting system -No hx of Renal/Ureter abnormalities -Severe CVA tenderness (R) during physical exam -Started on Ceftriaxone in ED - will continue @ 1 g Q24H -s/p Azithromycin 1 teresa 11/27 for suspected GC/CT -s/p 2L NS in ED - will transition to LR -Zofran for N/V -Tylenol and Toradol for fever/pain -Will transition to PO medication today 2. Hyponatremia, resolved -Na: 132 > 138 -Will continue to trend with AM Labs 3. Elevated BP w/o Diagnosis of HTN -Documented HTN in the ED, with subsequent BPs at goal -Will continue to monitor and consider starting CHERIE-I for renal protection, Hx of DM 4. IDDM2 -Per patient, fasting BGs typically in the 300s -Continue home Toujeo 60u (or equivalent) QAM - Titrated up to 66u QAM -Will initiate Pre-Prandial Insulin 4u ACHS -Moderate ISS -ACHS Accuchecks -Dietary Consult: Pending 5. Hx of Hypothyroidism -Patient states she was taken off of Levothyroxine by PCP -TSH: 5.03 -Free T3: 2.17 -Free T4: 0.79 -Likely sub-clinical - will continue to monitor for development of symptoms 6. Gastroparesis -Likely 2/2 to #4 -Per patient, N/V currently at baseline -Followed by GI as an outpatient, stable 7. Abnormal Uterine Bleeding -Has had AUB since Nexplanon insertion ~1Y prior -Has tried Provera and OCPs as an outpatient -Encouraged patient to f/u in clinic and to consider removal of Nexplanon 8. Restless Leg Syndrome -Will continue home Gabapentin regimen PCP: [facility] - [facility] Code: Full Diet: CC DVT PPx: SCDs Dispo: Patient is currently stable and admitted to the Medical Floor for Sepsis 2/2 Pyelonephritis w/ failed outpatient treatment. Will transition to PO ABx as per above based on UCx and sensitivities. Continue to monitor ACHS Accuchecks and titrate DM medication regimen in order to achieve target BG of 140-180 - encourage to follow-up as outpatient in order to initiate addition of insulin. Will likely DC today. Expected LOS < 24H. Addendum - Attending - Attending Attestation Date/Time: 11/30/19 0930 I personally evaluated the patient and discussed the management with Dr. Laird I agree with the History, Examination, Assessment and Plan documented above with any addition or exceptions noted below. 34 yo F admitted for treatment of ureteritis. Ucx shows e. coli, transitioned to bactrim. Have titrated up on insulin regimen, control is improving, bring glucose log to outpt. appt. with PCP. Will discharge today. RA Degroot
[2019-11-30] MEDS: Ciprofloxacin 0.3% Ophth Drops 2.5 ml Bottle R EYE SCH ×2 (07:37→10:42)
[2019-11-30] MEDS: Insulin Regular 300 UNITS/3 ML VIAL SC SCH ×2 (08:48→11:42)
[2019-11-30] MEDS: Ketorolac Tromethamine 30 MG/ML VIAL IVP PRN (08:53)
[2019-11-30] MEDS ORDERED: Polyethylene Glycol 3350 17 GM Packet PO PRN (09:34)
[2019-11-30 11:25] VITALS: BP 125/85; TEMP 97.9
[2019-11-30] MEDS: HumaLOG 300 UNITS/3 ML VIAL SC PRN (11:41)
[2019-11-30 13:13] LABS: Chlamydia trachomatis by NAA Negative (Negative)
[2019-11-30] MEDS ORDERED: Sulfameth/Trimethoprim DS 800-160mg TAB PO SCH (21:00)
--- NOTE | 2019-12-01 05:54 | DIS ---
DATE OF ADMISSION: 11/28/2019 DATE OF DISCHARGE: 11/30/2019 RESIDENT: Mata Laird MD ADMITTING ATTENDING: Mor Alvarez MD DISCHARGE ATTENDING: Richard Degroot MD CONSULTS: None. PROCEDURES: CT abdomen and pelvis which revealed acute cystitis complicated by ascending right genitourinary tract infection causing right ureteritis and mild obstruction and subsequent mild right-sided hydronephrosis. PRIMARY DIAGNOSIS: Acute cystitis with subsequent right-sided ureteritis. SECONDARY DIAGNOSES: Hyponatremia, resolved; elevated blood pressure without diagnosis of hypertension; diabetes; hypothyroidism; diabetic gastroparesis; abnormal uterine bleeding; and restless legs syndrome. DISCHARGE MEDICATIONS: Macrobid Double Strength one tablet p.o. b.i.d. for 10 days. Discontinued medications; 1. Acetaminophen 650 mg p.o. q.4 hours p.r.n. 2. Calcium carbonate 1000 mg p.o. q.4 hours p.r.n. 3. Ceftriaxone 1 g IV q.24 hours. 4. Ciprofloxacin ophthalmic solution one drop to each eye. 5. Gabapentin 300 mg daily. 6. Lantus 66 units daily. 7. Insulin human lispro moderate sliding scale. 8. Insulin human lispro 4 units with meals. 9. Toradol 15 mg IVP q.6 hours p.r.n. 10. Zofran 4 mg IVP q.6 hours p.r.n. 11. MiraLAX 17 g p.o. daily. HOSPITAL COURSE: The patient is a 34-year-old female with past medical history significant for hypothyroidism, not currently taking medications, restless legs syndrome, abnormal uterine bleeding due to a Nexplanon implantation approximately 12 months prior, diabetes, gastroparesis, and recent UTI diagnosed in clinic on 11/16, was treated with Macrobid 100 mg p.o. b.i.d. for 7 days. She presents to the ED with a chief complaint of right-sided suprapubic and flank pain. The patient was seen at the [facility] on 11/16, diagnosed with UTI. At that time, she was prescribed Macrobid as noted previously in this document. She stated that she finished the course of antibiotics. Urine culture obtained from the 11/16 appointment demonstrated E coli resistant to ampicillin, but was otherwise sensitive to all other listed medications. The patient states that she takes 60 units to [facility] daily. She reports fasting blood glucose typically in the 300s and takes her blood glucose measurements x1 each day. She reports that the pain she experienced on initial evaluation in the ED has been ongoing since her original diagnosis in clinic and she presented to the emergency department because she "could not take it anymore." The patient endorses urinary frequency and pressure in her lower abdomen. Denies dysuria, urinary hesitancy, vaginal discharge, or foul odor. She also endorses daily nausea and vomiting and has a history of diabetic gastroparesis and is followed by GI. She does not know the name of her provider however. The patient reports hypothyroidism that she no longer takes medication for and abnormal uterine bleeding as mentioned previously in this document. While in the ED, the patient was given 1 g of ceftriaxone, a 2 L bolus of normal saline, 4 mg Zofran, 15 mg Toradol, subsequently transferred to the medical floor. While on the medical floor, ongoing fluid resuscitation occurred and the patient continued to receive ceftriaxone 1 g daily until urinalysis and subsequent culture revealed E coli resistant with similar resistance pattern to the E coli infection that she has been diagnosed in clinic previously. As such, the patient was subsequently prepped for discharge with Bactrim Double Strength p.o. b.i.d. for 10 days. However, it should be noted that the patient's blood glucose was extremely difficult to control as the patient has admittedly poor diabetes management. As such, her daily basal insulin requirements were increased from 60 units to 66 units. Additionally, she was given 4 units of short-acting insulin with each meal and was subsequently covered with a moderate sliding scale insulin after each meal. Great efforts were taken to educate the patient on the typical course of diabetes and proper management, meal planning, dietary choices and portion control. Prior to discharge, the patient's vitals recorded as 97.9, heart rate 67 beats per minute, respirations 20 per minute, oxygen saturation 99% on room air, blood pressure 125/85. LABORATORY ANALYSIS: Revealed a white blood cell count of 8, hemoglobin of 13, hematocrit of 39.5, platelet count of 223. Chem panel revealed a sodium of 138, potassium 3.7, chloride 106, carbon dioxide 23, BUN 11, creatinine 0.6, glucose 109, calcium 8.9. TSH was measured to be 5.03. Subsequent measurements of free T3 and T4 revealed values of 2.17 and 0.79 respectively. Serum test was negative. AST was measured at 12, ALT was measured at 15. DISPOSITION: Stable. DISCHARGE INSTRUCTIONS: 1. Location: Home. 2. Diet: Carbohydrate conscious. 3. Activity: No restrictions. 4. Followup: The patient was encouraged to follow up with her primary care physician in approximately 2 to 3 weeks in order to discuss her recent hospitalization. Additionally, the patient was also encouraged to speak with her physician about ongoing management of her diabetes as her diabetes is inadequately controlled at this time. Job ID: [id number]
== END 2019-11-30 13:50 | disposition home or self-care (01) | DRG 872 ==
LOC: ERS 03:14 → T4-A 06:28 → OBSVTOIN 06:28
PROVIDERS: ADMIT Family Medicine; ATTEND Family Medicine
DX: A41.51 Sepsis due to Escherichia coli [E. coli] (principal); N12 Tubulo-interstitial nephritis, not specified as acute or chronic; Z16.11 Resistance to penicillins; E87.1 Hypo-osmolality and hyponatremia; E03.9 Hypothyroidism, unspecified; E11.43 Type 2 diabetes mellitus with diabetic autonomic (poly)neuropathy; E11.65 Type 2 diabetes mellitus with hyperglycemia; K31.84 Gastroparesis; R03.0 Elevated blood-pressure reading, without diagnosis of hypertension; G25.81 Restless legs syndrome; N28.89 Other specified disorders of kidney and ureter; N93.9 Abnormal uterine and vaginal bleeding, unspecified; F32.9 Major depressive disorder, single episode, unspecified; Z87.440 Personal history of urinary (tract) infections; Z88.8 Allergy status to other drugs, medicaments and biological substances; Z79.899 Other long term (current) drug therapy; Z79.4 Long term (current) use of insulin; Z90.49 Acquired absence of other specified parts of digestive tract; Z98.51 Tubal ligation status
CPT/HCPCS: 36415; 36416; 74177; 80048; 80053; 81003; 81015; 83605; 84439; 84443; 84481; 84703; 85025; 87077; 87086; 87186; 87491; 87591; 96361; 96365; 96375; J0696; J1815; J1885; J2405; J3490; Q9967

== ENCOUNTER 2020-02-10 06:22 | Emergency (ER) | payer OTHER ==
[2020-02-10 07:35] LABS: #Lymphocytes 1.2 thou/uL (1.20-3.40); #Monocytes 0.4 thou/uL (0.11-0.59); #Neutrophils 4.2 thou/uL (1.40-6.50); %Basophils 0.8 % (0.0-1.0); %Eosinophils 0.5 % (0.0-10.0); %Lymphocytes 20.8 % (21.0-51.0); %Monocytes 7.1 % (0.0-10.0); %Neutrophils 70.8 % (42.0-75.0); Hemoglobin 17.2 g/dL (12.0-16.0); Mean Corpuscular HGB CONC 34.1 g/dL (32.0-36.0); Mean Corpuscular Hemoglobin 27.7 pg (27.0-31.0); Mean Corpuscular Volume 81.5 fL (78.0-98.0); Mean Platelet Volume 9.9 fL (7.4-10.4); Platelet Count 193 thou/uL (130-400); RBC Distribution Width 13.8 % (11.5-14.5); Red Blood Cell (RBC) Count 6.18 mill/uL (4.20-5.40); White Blood Cell (WBC) Count 5.9 thou/uL (4.8-10.8)
[2020-02-10 07:40] LABS: Base Excess-Venous -1.3 mmol/L (-2.0 to 3.0); Bicarbonate (HCO3v) 22.4 mmol/L (22.0-28.0); CO2 Tension (PvCO2) 34.6 mmHg (40.0-50.0); Calcium, Ionized 1.04 mmol/L (See Comments:); Chloride 99 mmol/L (98-107); Hemoglobin - Calc 18.6 g/dL (12.0-16.0); Potassium 3.7 mmol/L (3.5-5.1); Sodium 134 mmol/L (138-145); T. Carbon Dioxide 23.5 mmol/L (22.0-28.0); vO2 Saturation-calc 74.6 % (60.0-85.0)
[2020-02-10 07:41] LABS: BHCG - Serum Negative (NEGATIVE); Pregs Control Background? CLEAR/WHITE (CLR/WHITE); Pregs Control Bar Appear? YES (CONTROL BAR)
[2020-02-10 07:58] LABS: ALT (SGPT) 21 U/L (8-55); AST (SGOT) 17 U/L (5-34); Albumin 3.9 g/dL (3.5-5.0); Alkaline Phosphatase 91 U/L (40-110); Anion Gap 15 mmol/L (10-20); BUN (Urea Nitrogen) 10 mg/dL (7.0-18.7); Bilirubin, Total 0.4 mg/dL (0.2-1.2); Calc. Creatinine Clearance 0 mL/min (70-130); Carbon Dioxide 22 mmol/L (22-29); Chloride 99 mmol/L (98-107); Estimated GFR-MDRD 77; Globulin 3.6 g/dL (2.4-3.5); Glucose 364 mg/dL (70-105); Potassium 3.7 mmol/L (3.5-5.1); Protein, Total 7.5 g/dL (6.0-8.3); Sodium 132 mmol/L (136-145)
[2020-02-10] MEDS ORDERED: Mag-Al 1200 mg/1200 mg/30 ML UDCUP ONE (08:41)
[2020-02-10] MEDS ORDERED: Lidocaine Viscous Sol 2% 15 ml UD Cup ONE (08:41)
[2020-02-10] MEDS ORDERED: Ondansetron PF 4 MG/2 ML Vial ONE (08:44)
--- NOTE | 2020-02-10 09:14 | RAD ---
CHEST 1 VIEW: INDICATION: A 35-year-old female with chest pain and emergency examination. COMPARISON: Prior exam dated 09/26/2018. IMPRESSION: No acute cardiopulmonary abnormality. Cholecystectomy change. COMMENTS: Lungs are clear. Heart size is normal. No acute osseous abnormality is evident. POS: [facility]
[2020-02-11 14:46] LABS: SARS-CoV-2 MS2 Positive; SARS-CoV-2 N Gene Positive; SARS-CoV-2 S Gene Positive; SARS-CoV-2 by NAA DETECTED (NotDetected); SARS-CoV-2 orf1ab Positive
== END 2020-02-10 09:38 | disposition home or self-care (01) ==
LOC: ERS 06:22
DX: U07.1 COVID-19 (principal); K21.9 Gastro-esophageal reflux disease without esophagitis; I10 Essential (primary) hypertension; E11.9 Type 2 diabetes mellitus without complications; F32.9 Major depressive disorder, single episode, unspecified; Z79.4 Long term (current) use of insulin
CPT/HCPCS: 36416; 71045; 80053; 82010; 82330; 82803; 84703; 85025; 87635; 96361; 96374; J2405; U0003

== ENCOUNTER 2020-02-15 01:57 | Emergency (ER) | payer OTHER ==
[2020-02-15 02:35] LABS: #Lymphocytes 1.5 thou/uL (1.20-3.40); #Monocytes 0.3 thou/uL (0.11-0.59); #Neutrophils 2.2 thou/uL (1.40-6.50); %Basophils 0.7 % (0.0-1.0); %Eosinophils 0.7 % (0.0-10.0); %Lymphocytes 36.9 % (21.0-51.0); %Monocytes 7.8 % (0.0-10.0); %Neutrophils 53.9 % (42.0-75.0); Hemoglobin 15.8 g/dL (12.0-16.0); Mean Corpuscular HGB CONC 33.9 g/dL (32.0-36.0); Mean Corpuscular Hemoglobin 27.6 pg (27.0-31.0); Mean Corpuscular Volume 81.4 fL (78.0-98.0); Mean Platelet Volume 9.7 fL (7.4-10.4); Platelet Count 209 thou/uL (130-400); RBC Distribution Width 13.5 % (11.5-14.5); Red Blood Cell (RBC) Count 5.74 mill/uL (4.20-5.40); White Blood Cell (WBC) Count 4.1 thou/uL (4.8-10.8)
[2020-02-15] MEDS ORDERED: Albuterol 200 PUFF (6.7GM INHALER) ONE (02:39)
[2020-02-15 02:57] LABS: ALT (SGPT) 112 U/L (8-55); AST (SGOT) 81 U/L (5-34); Albumin 3.7 g/dL (3.5-5.0); Alkaline Phosphatase 133 U/L (40-110); Anion Gap 16 mmol/L (10-20); BUN (Urea Nitrogen) 9 mg/dL (7.0-18.7); Bilirubin, Total 0.3 mg/dL (0.2-1.2); Calc. Creatinine Clearance 0 mL/min (70-130); Calcium 9.7 mg/dL (7.8-10.44); Carbon Dioxide 21 mmol/L (22-29); Chloride 100 mmol/L (98-107); Estimated GFR-MDRD 78; Globulin 3.5 g/dL (2.4-3.5); Glucose 449 mg/dL (70-105); Potassium 3.9 mmol/L (3.5-5.1); Protein, Total 7.2 g/dL (6.0-8.3); Sodium 133 mmol/L (136-145)
--- NOTE | 2020-02-15 07:43 | RAD ---
EXAM: Single view of the chest HISTORY: Dyspnea COMPARISON: 02/10/2020 FINDINGS: Single view of the chest shows a normal sized cardiomediastinal silhouette. There is no swathi dence of consolidation, mass, or pleural effusion. The bones are unremarkable IMPRESSION: No evidence of acute cardiopulmonary disease
== END 2020-02-15 04:15 | disposition home or self-care (01) ==
LOC: ERS 01:57
DX: U07.1 COVID-19 (principal); I10 Essential (primary) hypertension; E11.9 Type 2 diabetes mellitus without complications; F32.9 Major depressive disorder, single episode, unspecified; Z79.899 Other long term (current) drug therapy
CPT/HCPCS: 36416; 71045; 80053; 85025; 96360

== ENCOUNTER 2020-11-14 09:20 | Emergency (ER) | payer OTHER ==
[2020-11-14] MEDS ORDERED: Ketorolac Tromethamine 30 MG/ML VIAL ONE (10:22)
== END 2020-11-14 11:29 | disposition home or self-care (01) ==
LOC: ERS 09:20
DX: M72.2 Plantar fascial fibromatosis (principal)
CPT/HCPCS: 96372; 99283; J1885

== ENCOUNTER 2021-03-06 07:40 | Outpatient (CLI) | payer OTHER | END 2021-03-06 07:41 | disposition home or self-care (01) | LOC: NM 07:40 | PROVIDERS: ATTEND Physician Assistant Medical | DX: K21.9 Gastro-esophageal reflux disease without esophagitis (principal); R11.2 Nausea with vomiting, unspecified | CPT/HCPCS: 78264; A9541 ==

== ENCOUNTER 2021-03-28 19:21 | Emergency (ER) | payer OTHER ==
[2021-03-28] MEDS ORDERED: Ibuprofen 800 MG TAB ONE (21:22)
[2021-03-29 17:18] LABS: SARS-CoV-2 PCR by NAA Not Detected (NotDetected)
== END 2021-03-28 22:09 | disposition home or self-care (01) ==
LOC: ERS 19:21
DX: M79.10 Myalgia, unspecified site (principal); R19.7 Diarrhea, unspecified; R11.0 Nausea; E11.9 Type 2 diabetes mellitus without complications; K21.9 Gastro-esophageal reflux disease without esophagitis; K31.84 Gastroparesis; Z20.822 Contact with and (suspected) exposure to COVID-19; Z79.4 Long term (current) use of insulin; Z79.899 Other long term (current) drug therapy
CPT/HCPCS: 99283; U0003; U0005

== ENCOUNTER 2022-06-24 15:55 | Emergency (ER) | payer OTHER ==
[2022-06-24] MEDS ORDERED: Ondansetron ODT 4 MG TAB ONE (16:43)
[2022-06-24] MEDS ORDERED: Mag-Al 1200 mg/1200 mg/30 ML UDCUP ONE (16:43)
[2022-06-24] MEDS ORDERED: Lidocaine Viscous Sol 2% 15 ml UD Cup ONE (16:43)
[2022-06-24] MEDS ORDERED: Dicyclomine 20 MG/2 ML VIAL ONE (16:43)
[2022-06-24 17:38] LABS: Bacteria/HPF None Seen HPF (None Seen); Bilirubin Negative (Negative); Blood, Urine 1+ (Negative); Clarity Clear (Clear); Glucose, Urine (Dipstick) Normal (Negative); Ketone, Urine Trace mg/dL (Negative); Leukocyte Negative Leu/uL (Negative); Nitrite Negative (Negative); Protein, Urine (Dipstick) 20 mg/dL (Neg-Trace); RBC/HPF 0-3 HPF (0-3); Specific Gravity, Urine 1.029 (1.002-1.036); Urobilinogen Normal mg/dL (Less than 2); WBC/HPF 0-3 HPF (0-3)
== END 2022-06-24 18:23 | disposition home or self-care (01) ==
LOC: ERS 15:55
DX: J06.9 Acute upper respiratory infection, unspecified (principal); R10.13 Epigastric pain; K21.9 Gastro-esophageal reflux disease without esophagitis; E11.9 Type 2 diabetes mellitus without complications
CPT/HCPCS: 81003; 81015; 96372; Q0162

== ENCOUNTER 2022-06-25 22:29 | Emergency (ER) | payer OTHER ==
[2022-06-25] MEDS ORDERED: Lidocaine Viscous Sol 2% 15 ml UD Cup ONE (23:04)
[2022-06-25] MEDS ORDERED: Mag-Al 1200 mg/1200 mg/30 ML UDCUP ONE (23:04)
[2022-06-25 23:19] LABS: #Basophils 0.1 thou/uL (0.0-0.2); #Eosinphils 0.1 thou/uL (0.0-0.7); #Lymphocytes 2.6 thou/uL (1.20-3.40); #Monocytes 0.4 thou/uL (0.11-0.59); #Neutrophils 7.9 thou/uL (1.40-6.50); %Basophils 0.6 % (0.0-1.0); %Eosinophils 0.6 % (0.0-10.0); %Lymphocytes 23.4 % (21.0-51.0); %Monocytes 3.9 % (0.0-10.0); %Neutrophils 71.6 % (42.0-75.0); Mean Corpuscular HGB CONC 32.5 g/dL (32.0-36.0); Mean Corpuscular Hemoglobin 26.6 pg (27.0-31.0); Mean Corpuscular Volume 81.9 fl (78.0-98.0); Platelet Count 250 10x3/uL (130-400); Red Blood Cell (RBC) Count 5.26 mill/uL (4.20-5.40); White Blood Cell (WBC) Count 11.1 10x3/uL (4.8-10.8)
[2022-06-25 23:40] LABS: ALT (SGPT) 29 U/L (8-55); AST (SGOT) 17 U/L (5-34); Albumin 3.8 g/dL (3.5-5.0); Alkaline Phosphatase 89 U/L (40-110); Anion Gap 11 mmol/L (10-20); BUN (Urea Nitrogen) 16 mg/dL (7.0-18.7); Bilirubin, Total 0.4 mg/dL (0.2-1.2); Calc. Creatinine Clearance 0 mL/min (70-130); Calcium 9.4 mg/dL (7.8-10.44); Carbon Dioxide 27 mmol/L (22-29); Chloride 104 mmol/L (98-107); Estimated GFR 91; Globulin 3.6 g/dL (2.4-3.5); Glucose 142 mg/dL (70-105); Potassium 4.2 mmol/L (3.5-5.1); Protein, Total 7.4 g/dL (6.0-8.3); Sodium 138 mmol/L (136-145)
== END 2022-06-26 01:15 | disposition home or self-care (01) ==
LOC: ERS 22:29
DX: R10.13 Epigastric pain (principal); E11.9 Type 2 diabetes mellitus without complications; K21.9 Gastro-esophageal reflux disease without esophagitis; G43.909 Migraine, unspecified, not intractable, without status migrainosus; I10 Essential (primary) hypertension; E78.5 Hyperlipidemia, unspecified; Z79.4 Long term (current) use of insulin; Z79.84 Long term (current) use of oral hypoglycemic drugs
CPT/HCPCS: 36415; 71045; 76705; 93005

== ENCOUNTER 2023-03-19 20:20 | Emergency (ER) | payer OTHER ==
[2023-03-19] MEDS ORDERED: traMADol HCl 50 MG TAB ONE (20:58)
[2023-03-19] MEDS ORDERED: Ketorolac Tromethamine 30 MG/ML VIAL ONE (20:59)
== END 2023-03-19 21:19 | disposition home or self-care (01) ==
LOC: ERS 20:20
DX: K04.7 Periapical abscess without sinus (principal); K03.81 Cracked tooth; E11.9 Type 2 diabetes mellitus without complications; K21.9 Gastro-esophageal reflux disease without esophagitis
CPT/HCPCS: 96372; 99282; J1885

== ENCOUNTER 2023-04-21 13:45 | Emergency (ER) | payer OTHER ==
[2023-04-21 14:21] LABS: #Eosinphils 0.1 thou/uL (0.0-0.7); #Monocytes 0.4 thou/uL (0.11-0.59); #Neutrophils 6.9 thou/uL (1.40-6.50); %Basophils 0.4 % (0.0-1.0); %Eosinophils 0.9 % (0.0-10.0); %Lymphocytes 19.6 % (21.0-51.0); %Monocytes 3.9 % (0.0-10.0); %Neutrophils 74.7 % (42.0-75.0); Hematocrit 37.8 % (36.0-47.0); Hemoglobin 11.6 g/dL (12.0-16.0); Mean Corpuscular HGB CONC 30.7 g/dL (32.0-36.0); Mean Corpuscular Hemoglobin 21.2 pg (27.0-31.0); Mean Corpuscular Volume 69.1 fl (78.0-98.0); Mean Platelet Volume 11.2 fL (7.4-10.4); Platelet Count 258 10x3/uL (130-400); RBC Distribution Width 16.9 % (11.5-14.5); Red Blood Cell (RBC) Count 5.47 mill/uL (4.20-5.40); White Blood Cell (WBC) Count 9.3 10x3/uL (4.8-10.8)
[2023-04-21 14:45] LABS: ALT (SGPT) 16 U/L (8-55); AST (SGOT) 12 U/L (5-34); Alkaline Phosphatase 88 U/L (40-110); Anion Gap 13 mmol/L (10-20); BUN (Urea Nitrogen) 11 mg/dL (7.0-18.7); Bilirubin, Total 0.3 mg/dL (0.2-1.2); Calc. Creatinine Clearance 0 mL/min (70-130); Calcium 9.4 mg/dL (7.8-10.44); Carbon Dioxide 23 mmol/L (22-29); Chloride 104 mmol/L (98-107); Estimated GFR 88; Globulin 2.9 g/dL (2.4-3.5); Glucose 251 mg/dL (70-105); Potassium 4.8 mmol/L (3.5-5.1); Protein, Total 6.9 g/dL (6.0-8.3); Sodium 135 mmol/L (136-145)
[2023-04-21 14:49] LABS: Troponin I Less than 0.010 ng/mL (< 0.028)
[2023-04-21 14:59] LABS: Anisocytosis SLIGHT = 6-15 cells HPF (0-5); CellaVision Operator ID LAB.KB; Hypochromia SLIGHT = 6-15 cells HPF (0-5); Microcytosis SLIGHT = 6-15 cells HPF (0-5); Ovalocytes SLIGHT = 2-5 cells HPF (0-1); Platelet Adequacy Comment Platelets Normal; Polychromasia SLIGHT = 2-3 cells HPF (0-2)
[2023-04-21] MEDS ORDERED: Ondansetron PF 4 MG/2 ML Vial ONE (15:05)
[2023-04-21 15:26] LABS: BHCG - Serum Negative (NEGATIVE); Pregs Control Background? CLEAR/WHITE (CLR/WHITE); Pregs Control Bar Appear? YES (CONTROL BAR)
[2023-04-21 15:55] LABS: SARS-CoV-2 NAA Rapid Test Not Detected (NotDetected)
[2023-04-21 16:53] LABS: Actual Bicarbonate (HCO3v) 22.1 mEq/L (22-28); Base Excess -3.4 mEq/L (-2.0 to +3.0); Chloride (VBG) 103 mmol/L (98-106); Hematocrit-VBG 38 % (36.0-47.0); Hemoglobin (Hb) 12.8 g/dL (11.7-15.5); Potassium (VBG) 4.21 mmol/L (3.70-5.30); Sodium 135 mmol/L (133-146); pH (venous) 7.342 (7.32-7.43)
[2023-04-21 17:26] LABS: Bacteria/HPF 1+ HPF (None Seen); Bilirubin Negative (Negative); Blood, Urine Negative (Negative); CAUTI Indications for Culture Alt mental st,lethar; Clarity Clear (Clear); Glucose, Urine (Dipstick) 200 mg/dL (Negative); Ketone, Urine Negative (Negative); Leukocyte Negative Leu/uL (Negative); Nitrite Negative (Negative); Protein, Urine (Dipstick) Negative (Neg-Trace); RBC/HPF 0-3 HPF (0-3); Specific Gravity, Urine 1.011 (1.002-1.036); Squamous Epithelial 0-3 HPF (0-3); Urobilinogen Normal mg/dL (Less than 2); WBC/HPF 0-3 HPF (0-3); pH, Urine 5.5 (5.0-9.0)
[2023-04-21 17:27] LABS: Urine Culture Reflex No No
== END 2023-04-21 18:17 | disposition home or self-care (01) ==
LOC: ERS 13:45
DX: R07.89 Other chest pain (principal); E11.43 Type 2 diabetes mellitus with diabetic autonomic (poly)neuropathy; K31.84 Gastroparesis; F17.210 Nicotine dependence, cigarettes, uncomplicated; Z20.822 Contact with and (suspected) exposure to COVID-19; Z79.4 Long term (current) use of insulin
CPT/HCPCS: 36415; 36416; 71045; 80053; 81001; 82010; 82805; 83880; 83930; 84484; 84703; 85025; 93005; 96361; 96374; J2405

== ENCOUNTER 2023-07-01 12:06 | Emergency (ER) | payer OTHER ==
[2023-07-01 12:43] LABS: #Basophils 0.1 thou/uL (0.0-0.2); #Eosinphils 0.1 thou/uL (0.0-0.7); #Monocytes 0.4 thou/uL (0.11-0.59); #Neutrophils 4.1 thou/uL (1.40-6.50); %Basophils 0.8 % (0.0-1.0); %Eosinophils 1.4 % (0.0-10.0); %Lymphocytes 27.5 % (21.0-51.0); %Monocytes 5.6 % (0.0-10.0); %Neutrophils 64.2 % (42.0-75.0); Hematocrit 40.4 % (36.0-47.0); Hemoglobin 12.1 g/dL (12.0-16.0); Mean Corpuscular Hemoglobin 20.5 pg (27.0-31.0); Mean Corpuscular Volume 68.5 fl (78.0-98.0); Mean Platelet Volume 11.5 fL (7.4-10.4); Platelet Count 264 10x3/uL (130-400); RBC Distribution Width 15.8 % (11.5-14.5); White Blood Cell (WBC) Count 6.4 10x3/uL (4.8-10.8)
[2023-07-01 13:06] LABS: ALT (SGPT) 21 U/L (8-55); AST (SGOT) 15 U/L (5-34); Albumin 3.7 g/dL (3.5-5.0); Alkaline Phosphatase 80 U/L (40-110); Anion Gap 13 mmol/L (10-20); BUN (Urea Nitrogen) 13 mg/dL (7.0-18.7); Bilirubin, Total 0.8 mg/dL (0.2-1.2); Calc. Creatinine Clearance 0 mL/min (70-130); Calcium 9.1 mg/dL (7.8-10.44); Carbon Dioxide 22 mmol/L (22-29); Chloride 102 mmol/L (98-107); Estimated GFR 79; Globulin 3.3 g/dL (2.4-3.5); Lipase 33 U/L (8-78); Potassium 4.3 mmol/L (3.5-5.1); Sodium 133 mmol/L (136-145)
[2023-07-01 13:08] LABS: Bacteria/HPF 1+ HPF (None Seen); Bilirubin Negative (Negative); Blood, Urine Negative (Negative); CAUTI Indications for Culture Dysuria,urgency,freq; Clarity Clear (Clear); Glucose, Urine (Dipstick) Greater than 1000 mg/dL (Negative); Ketone, Urine 20 mg/dL (Negative); Leukocyte Negative Leu/uL (Negative); Nitrite Negative (Negative); Protein, Urine (Dipstick) 70 mg/dL (Neg-Trace); RBC/HPF 0-3 HPF (0-3); Specific Gravity, Urine 1.048 (1.002-1.036); Squamous Epithelial 0-3 HPF (0-3); Urine Culture Reflex No No; Urobilinogen Normal mg/dL (Less than 2); WBC/HPF 0-3 HPF (0-3)
[2023-07-01 13:10] LABS: Troponin I Less than 0.010 ng/mL (< 0.028)
[2023-07-01 13:13] LABS: Glucose 427 mg/dL (70-105)
[2023-07-01 13:21] LABS: BHCG - Serum Negative (NEGATIVE); Pregs Control Background? CLEAR/WHITE (CLR/WHITE); Pregs Control Bar Appear? YES (CONTROL BAR)
[2023-07-01] MEDS ORDERED: Ondansetron PF 4 MG/2 ML Vial ONE (13:25)
[2023-07-01 13:31] LABS: SARS-CoV-2 NAA Rapid Test Not Detected (NotDetected)
[2023-07-01 13:56] LABS: CellaVision Operator ID LAB.KB; Hypochromia SLIGHT = 6-15 cells HPF (0-5); Microcytosis SLIGHT = 6-15 cells HPF (0-5); Ovalocytes SLIGHT = 2-5 cells HPF (0-1); Platelet Adequacy Comment Platelets Normal
== END 2023-07-01 14:30 | disposition home or self-care (01) ==
LOC: ERS 12:06
DX: R11.2 Nausea with vomiting, unspecified (principal); E11.9 Type 2 diabetes mellitus without complications; K21.9 Gastro-esophageal reflux disease without esophagitis; F17.210 Nicotine dependence, cigarettes, uncomplicated; Z79.4 Long term (current) use of insulin; Z79.84 Long term (current) use of oral hypoglycemic drugs
CPT/HCPCS: 36415; 36416; 80053; 81001; 83605; 83690; 84484; 84703; 85025; 93005; 96361; 96374; J2405

== ENCOUNTER 2023-07-10 13:15 | Emergency (ER) | payer OTHER ==
[2023-07-10 14:26] LABS: SARS-CoV-2 NAA Rapid Test Not Detected (NotDetected)
[2023-07-10] MEDS ORDERED: Ibuprofen 800 MG TAB ONE (14:26)
[2023-07-10] MEDS ORDERED: Boostrix 0.5 ML (Tdap) VIAL (>/=7 yrs of age) ONE (14:26)
== END 2023-07-10 15:07 | disposition home or self-care (01) ==
LOC: ERS 13:15
DX: J10.1 Influenza due to other identified influenza virus with other respiratory manifestations (principal); M25.561 Pain in right knee; K21.9 Gastro-esophageal reflux disease without esophagitis; F17.210 Nicotine dependence, cigarettes, uncomplicated; E11.43 Type 2 diabetes mellitus with diabetic autonomic (poly)neuropathy; K31.84 Gastroparesis; Z23 Encounter for immunization; Z79.899 Other long term (current) drug therapy; Z79.4 Long term (current) use of insulin; Z79.84 Long term (current) use of oral hypoglycemic drugs
CPT/HCPCS: 90471; 90715

== ENCOUNTER 2024-01-12 13:19 | Emergency (ER) | payer OTHER ==
[~2024-01-12 13:19] MED LIST changes: -ISOVUE-370 76%-LOCM 1 ML ONE; +Iopamidol-370 76% 500 ML MDV (1 ML CHARGE) ONE
[2024-01-12 14:41] LABS: #Basophils 0.05 10x3/uL (0.0-0.2); %Basophils 0.5 % (0.0-1.0); %Eosinophils 0.8 % (0.0-10.0); %Lymphocytes 19.1 % (21.0-51.0); %Monocytes 3.9 % (0.0-10.0); %Neutrophils 75.2 % (42.0-75.0); Hematocrit 36.9 % (36.0-47.0); Hemoglobin 10.8 g/dL (12.0-16.0); Mean Corpuscular HGB CONC 29.3 g/dL (32.0-36.0); Mean Corpuscular Hemoglobin 17.7 pg (27.0-31.0); Mean Corpuscular Volume 60.6 fL (78.0-98.0); Platelet Count 311 10x3/uL (130-400); RBC Distribution Width 18.6 % (11.5-14.5); Red Blood Cell (RBC) Count 6.09 mill/uL (4.20-5.40)
[2024-01-12 14:55] LABS: ALT (SGPT) 13 U/L (8-55); AST (SGOT) 13 U/L (5-34); Albumin 3.8 g/dL (3.5-5.0); Alkaline Phosphatase 80 U/L (40-110); Anion Gap 15 mmol/L (10-20); BUN (Urea Nitrogen) 16 mg/dL (7.0-18.7); Bilirubin, Total 0.6 mg/dL (0.2-1.2); Calc. Creatinine Clearance 0 mL/min (70-130); Calcium 9.7 mg/dL (7.8-10.44); Carbon Dioxide 20 mmol/L (22-29); Chloride 104 mmol/L (98-107); Estimated GFR 92; Globulin 3.6 g/dL (2.4-3.5); Glucose 287 mg/dL (70-105); Potassium 4.4 mmol/L (3.5-5.1); Protein, Total 7.4 g/dL (6.0-8.3); Sodium 135 mmol/L (136-145)
[2024-01-12 15:42] LABS: Bacteria/HPF None Seen HPF (None Seen); Bilirubin Negative (Negative); Blood, Urine Negative (Negative); CAUTI Indications for Culture Alt mental st,lethar; Clarity Clear (Clear); Glucose, Urine (Dipstick) Greater than 1000 mg/dL (Negative); Ketone, Urine Negative (Negative); Leukocyte Negative Leu/uL (Negative); Nitrite Negative (Negative); Protein, Urine (Dipstick) Negative (Neg-Trace); RBC/HPF 0-3 HPF (0-3); Urobilinogen Normal mg/dL (Less than 2); WBC/HPF 0-3 HPF (0-3); pH, Urine 5.5 (5.0-9.0)
[2024-01-12 15:44] LABS: Urine Culture Reflex No No
[2024-01-12 15:47] LABS: Pregnancy Test - Urine (BHCG) Negative (Negative); Pregu Control Background? CLEAR/WHITE (CLR/WHITE); Pregu Control Bar Appear? YES (CONTROL BAR)
[2024-01-12 15:52] LABS: Anisocytosis SLIGHT = 6-15 cells HPF (0-5); Burr Cells SLIGHT = 2-5 cells HPF (0-1); Elliptocytes SLIGHT = 2-5 cells HPF (0-1); Hypochromia MODERATE=16-30 cells HPF (0-5); Microcytosis MODERATE=15-30 cells HPF (0-5); Ovalocytes SLIGHT = 2-5 cells HPF (0-1); Platelet Adequacy Comment Platelets Normal; Poikilocytosis SLIGHT = 6-15 cells HPF (0-5); Polychromasia MODERATE = 3-4 cells HPF (0-2)
== END 2024-01-12 17:00 | disposition home or self-care (01) ==
LOC: ERS 13:19
DX: K59.00 Constipation, unspecified (principal); R11.2 Nausea with vomiting, unspecified; E11.9 Type 2 diabetes mellitus without complications
CPT/HCPCS: 74177; 80053; 81001; 81025; 83690; 85025; Q9967

== ENCOUNTER 2024-05-14 14:41 | Emergency (ER) | payer OTHER, SELFPAY ==
[2024-05-14 15:24] LABS: #Basophils 0.07 10x3/uL (0.0-0.2); %Basophils 0.8 % (0.0-1.0); %Eosinophils 0.8 % (0.0-10.0); %Lymphocytes 16.6 % (21.0-51.0); %Monocytes 4.4 % (0.0-10.0); Hematocrit 36.2 % (36.0-47.0); Hemoglobin 10.2 g/dL (12.0-16.0); Mean Corpuscular HGB CONC 28.2 g/dL (32.0-36.0); Mean Corpuscular Hemoglobin 17.2 pg (27.0-31.0); Platelet Count 297 10x3/uL (130-400); RBC Distribution Width 19.7 % (11.5-14.5); Red Blood Cell (RBC) Count 5.93 mill/uL (4.20-5.40)
[2024-05-14 15:49] LABS: BHCG - Serum Negative (NEGATIVE); Pregs Control Background? CLEAR/WHITE (CLR/WHITE); Pregs Control Bar Appear? YES (CONTROL BAR)
[2024-05-14 15:50] LABS: ALT (SGPT) 25 U/L (8-55); AST (SGOT) 19 U/L (5-34); Albumin 3.4 g/dL (3.5-5.0); Alkaline Phosphatase 72 U/L (40-110); Anion Gap 14 mmol/L (10-20); BUN (Urea Nitrogen) 10 mg/dL (7.0-18.7); Bilirubin, Total 0.6 mg/dL (0.2-1.2); Calc. Creatinine Clearance 0 mL/min (70-130); Calcium 8.6 mg/dL (7.8-10.44); Carbon Dioxide 20 mmol/L (22-29); Chloride 102 mmol/L (98-107); Estimated GFR 113; Globulin 3.1 g/dL (2.4-3.5); Glucose 330 mg/dL (70-105); Lipase 23 U/L (8-78); Potassium 4.1 mmol/L (3.5-5.1); Protein, Total 6.5 g/dL (6.0-8.3); Sodium 132 mmol/L (136-145)
[2024-05-14 15:54] LABS: Bilirubin Negative (Negative); Blood, Urine Negative (Negative); CAUTI Indications for Culture Dysuria,urgency,freq; Clarity Clear (Clear); Glucose, Urine (Dipstick) Greater than 1000 mg/dL (Negative); Ketone, Urine 100 mg/dL (Negative); Leukocyte Negative Leu/uL (Negative); Nitrite Negative (Negative); Protein, Urine (Dipstick) 20 mg/dL (Neg-Trace); RBC/HPF 0-3 HPF (0-3); Specific Gravity, Urine 1.047 (1.002-1.036); Urobilinogen Normal mg/dL (Less than 2); Yeast-Budding Rare HPF (None Seen)
[2024-05-14 16:02] LABS: Bacteria/HPF 1+ HPF (None Seen)
[2024-05-14 16:22] LABS: Urine Culture Reflex Yes Yes
== END 2024-05-14 17:14 | disposition home or self-care (01) ==
LOC: ERS 14:41
DX: N39.0 Urinary tract infection, site not specified (principal); N76.0 Acute vaginitis; B37.31 Acute candidiasis of vulva and vagina; E11.65 Type 2 diabetes mellitus with hyperglycemia; K21.9 Gastro-esophageal reflux disease without esophagitis; Z79.4 Long term (current) use of insulin; Z79.84 Long term (current) use of oral hypoglycemic drugs; Z79.85 Long-term (current) use of injectable non-insulin antidiabetic drugs; Z79.899 Other long term (current) drug therapy
CPT/HCPCS: 36415; 36416; 80053; 81001; 83690; 84703; 85025; 87077; 87086; 87480; 87510; 87660; 96360

== ENCOUNTER 2024-07-15 12:54 | Emergency (ER) | payer MEDICAID, SELFPAY | END 2024-07-15 16:20 | disposition home or self-care (01) | LOC: ERS 12:54 | DX: R05.9 Cough, unspecified (principal); E11.9 Type 2 diabetes mellitus without complications | CPT/HCPCS: 87081; 87428; 87430; 99284 ==

== ENCOUNTER 2025-05-29 20:40 | Emergency (ER) | payer BC | END 2025-05-29 21:52 | disposition left against medical advice (07) | LOC: ERS 20:40 | DX: Z53.21 Procedure and treatment not carried out due to patient leaving prior to being seen by health care provider (principal) | CPT/HCPCS: 71045 ==